=== PATIENT | female | born 2000 | race Hispanic/Latino ===

== ENCOUNTER → 2021-09-18 08:36 | Outpatient (CLI) | payer OTHER, SELFPAY ==
--- NOTE | 2021-09-18 08:39 | DI.US.S_ITS ---
PROCEDURE: US OB <= 14 WEEKS FETUS INDICATIONS: dating and viability OUTSIDE/PRIOR DATING DATA: Last menstrual period (LMP): 06/08/21. LMP-based estimated date of delivery (TRACEE): 03/15/22. First dating scan (date and location): Current study, 09/18/21. Estimated date of delivery (TRACEE) from first dating scan: 04/28/22. TECHNIQUE: Real-time scanning was performed of the fetua and maternal pelvic organs, with image documentation. Endovaginal scanning: Performed for better visualization of the fetus and maternal adnexal structures. COMPARISON: None. FINDINGS: General: An intrauterine is present including a single pole with an average crown-rump length of 1.83 cm corresponding to a eight week, two day, plus or minus five days gestation. There is detectable cardiac activity in the fetus at a rate of 171 beats per minute. A normal yolk sac and unfused amnion are present. Maternal organs: Uterus is anteverted. Maternal cervix is closed. Tiny nabothian cyst present. No perigestational hemorrhage. There is a corpus luteum in the right ovary measuring 2.2 cm. The left ovary was not seen. IMPRESSION: 1. Single living intrauterine with a gestational age of eight weeks two days plus or minus five days, and sonographically derived due date of 04/28/22. 2. Right ovarian corpus luteum. We strive to produce accurate, complete, and clear reports of imaging services. To assist us in improving patient care, this report was composed using standard report templates and voice recognition software. Therefore, it may contain abnormal punctuation, insertions and/or omissions. Occasional wrong-word or sound-alike substitutions may occur. Though we review the report and make efforts to correct it, we do recommend that the report be read carefully in proper context to recognize any text inaccuracies. Dictated by: Sintia Loya M.D. on 09/18/2021 at 11:08 Approved by: Sintia Loya M.D. on 09/18/2021 at 11:11
[2021-09-18 10:07] LABS: Add Manual Diff / Slide Review NO; Basophils Absolute Auto 0 /uL (0-100); Basophils Percent Auto 0.4 % (0-2); Eosinophils Absolute Auto 200 /uL (0-450); Eosinophils Percent Auto 2.3 % (2-4); Hematocrit 37.2 % (36-46); Hemoglobin 12.9 g/dL (12.0-16.0); Lymphocytes Absolute Auto 3000 /uL (1100-4500); Lymphocytes Percent Auto 28.4 % (25-40); Mean Corpuscular HGB Conc 34.7 % (30-36); Mean Corpuscular Hemoglobin 30.7 PG (26-34); Mean Corpuscular Volume 88.4 fL (80-100); Monocytes Absolute Auto 800 /uL (0-900); Monocytes Percent Auto 7.2 % (3-14); Neutrophils Absolute Auto 6600 /uL (1500-7000); Neutrophils Percent Auto 61.7 % (50-75); Platelet Count 228 X10^3/uL (150-400); Red Blood Cell Count 4.21 X10^6/uL (4.0-5.2); Red Cell Distribution Width 13.9 % (11.6-14.8); White Blood Cell Count 10.7 X10^3/uL (4.5-11.0)
[2021-09-19 05:53] LABS: RPR Screen Non Reactive (Non Reactive)
[2021-09-19 11:25] LABS: Varicella IgG Antibody 2291 index (Immune >165)
[2021-09-19 16:32] LABS: Hepatitis B Surface Antigen NEGATIVE s/c (NEGATIVE); Rubella Antibody IgG 5.8 IU/mL (>15)
[2021-09-19 17:04] LABS: HIV 1 & 2 Ab/Ag 4th Gen Combo NEGATIVE (NEGATIVE); Hep C Virus Ab w/Reflex Quant NEGATIVE s/c (NEGATIVE)
== END ==
PROVIDERS: Referring Provider Obstetrics & Gynecology; Visit Provider Obstetrics & Gynecology
DX: Z34.00 Encounter for supervision of normal first pregnancy, unspecified trimester (principal); E28.2 Polycystic ovarian syndrome; Z3A.08 8 weeks gestation of pregnancy; D27.0 Benign neoplasm of right ovary
CPT/HCPCS: 36415; 76801; 76817; 80055; 86787; 86803; 86850; 86900; 86901; 87389

== ENCOUNTER → 2021-10-09 08:45 | Outpatient (CLI) | payer OTHER, SELFPAY ==
[2021-10-09 12:19] LABS: Appearance Urine UA CLEAR; Bilirubin Urine UA NEGATIVE (NEGATIVE); Color Urine UA YELLOW; Glucose Urine UA NEGATIVE (Negative); Ketones Urine UA NEGATIVE (NEGATIVE); Leukocyte Esterase Urine UA NEGATIVE (NEGATIVE); Nitrite Urine UA NEGATIVE (Negative); Occult Blood Urine UA NEGATIVE (Negative); Protein Urine UA NEGATIVE (Negative); Specific Gravity Urine UA 1.025 (1.000-1.035); Urobilinogen Urine UA 0.2 E.U./dL (0.2); pH Urine UA 6.5 (4.5-8.0)
== END ==
PROVIDERS: Visit Provider Obstetrics & Gynecology
DX: E28.2 Polycystic ovarian syndrome (principal); Z34.01 Encounter for supervision of normal first pregnancy, first trimester; Z3A.11 11 weeks gestation of pregnancy
CPT/HCPCS: 81003; 87086

== ENCOUNTER → 2021-11-13 11:29 | Outpatient (CLI) | payer OTHER, SELFPAY ==
[2021-11-13 13:36] LABS: Urine N gonorrhoeae NOT DETECTED
[2021-11-13 14:39] LABS: Urine Chlamydia NOT DETECTED
== END ==
PROVIDERS: Referring Provider Obstetrics & Gynecology; Visit Provider Obstetrics & Gynecology
DX: Z34.02 Encounter for supervision of normal first pregnancy, second trimester (principal); Z11.3 Encounter for screening for infections with a predominantly sexual mode of transmission; Z3A.16 16 weeks gestation of pregnancy
CPT/HCPCS: 87491; 87591

== ENCOUNTER → 2021-12-09 14:01 | Outpatient (CLI) | payer OTHER, SELFPAY ==
--- NOTE | 2021-12-09 14:02 | DI.US.S_ITS ---
PROCEDURE: US OB >= 14 WEEKS FETUS INDICATIONS: ANATOMY OUTSIDE/PRIOR DATING DATA: Last menstrual period (LMP): 06/08/2021. LMP-based estimated date of delivery (TRACEE): 03/15/2022. First dating scan (date and location): 09/18/2021. Estimated date of delivery (TRACEE) from first dating scan: 04/28/2022. TECHNIQUE: Real-time scanning was performed of the fetus, with image documentation and biometric measurements. Endovaginal scanning: Not performed COMPARISON: [facility], OB <= 14 WEEKS FETUS, 09/18/2021, 9:33. FINDINGS: General: A single living intrauterine gestation is present. Presentation: Vertex. Placenta: Placental position is posterior , without previa. Amniotic fluid index: 11.4 cm, normal range is 5-24 cm. Single deepest vertical pocket is 4.2 cm. heart rate: 150 beats per minute. Maternal cervical canal: 3.0 cm long. Normal lower limit is 2.5 cm. biometrics: Biparietal diameter: 4.7 centimeters, 20 weeks 1 day Head circumference: 17.4 centimeters, 19 weeks 6 days Abdominal circumference: 14.7 centimeters, 20 weeks 0 days Femur length: 3.4 centimeters, 20 weeks 4 days Composite gestational age from present scan: 20 weeks 1 day Estimated weight and percentile: 340 grams, 59th percentile Anatomic survey: Neuro: Ventricles are non-dilated at less than 10 mm. Cisterna magna is normal at 3-11 mm. Cerebellum is normal in size and morphology. Nuchal skin fold: Normal at less than 6 mm between 14-21 weeks gestational age. Face: Nose and lips, facial profile are normal. Spine: No evidence for spina bifida. Heart: 4-chambered heart is present, with normal ventricular outflow tracts. Diaphragm: Diaphragm is intact. Stomach: Left-sided stomach is present. Kidneys: No hydronephrosis. Normal is less than 5 mm in 2nd trimester, less than 7 mm in 3rd trimester. Cord: 3-vessel cord has orthotopic insertion. Bladder: Normal in size. Extremities: All 4 extremities identified. IMPRESSION: 1. Single living intrauterine . 2. Normal 2nd trimester anatomy survey. No anomalies detected at this time. We strive to produce accurate, complete, and clear reports of imaging services. To assist us in improving patient care, this report was composed using standard report templates and voice recognition software. Therefore, it may contain abnormal punctuation, insertions and/or omissions. Occasional wrong-word or sound-alike substitutions may occur. Though we review the report and make efforts to correct it, we do recommend that the report be read carefully in proper context to recognize any text inaccuracies. Dictated by: Damon Oliva M.D. on 12/11/2021 at 19:53 Approved by: Damon Oliva M.D. on 12/11/2021 at 19:59
== END ==
PROVIDERS: Referring Provider Obstetrics & Gynecology; Visit Provider Obstetrics & Gynecology
DX: Z34.02 Encounter for supervision of normal first pregnancy, second trimester (principal); Z3A.20 20 weeks gestation of pregnancy
CPT/HCPCS: 76811

== ENCOUNTER → 2021-12-11 11:11 | Outpatient (CLI) | payer OTHER, SELFPAY ==
[2021-12-13 20:46] LABS: AFP, Serum 55.3 ng/mL (.); Estriol, Free 2.15 ng/mL (.); Inhibin A, Dimeric 149.57 pg/mL (.); Inhibin A, MoM 0.93 (.); Maternal Ethnicity Other (.); Maternal Weight 215 lbs (.); Number of Fetuses No (.); OSBR Risk 1 IN 9862 (.); Results Report (.); Test Results *Screen Negative* (.); hCG, MoM 0.81 (.); hCG, Serum 16660 mIU/mL (.)
== END ==
PROVIDERS: Referring Provider Obstetrics & Gynecology; Visit Provider Obstetrics & Gynecology
DX: Z34.02 Encounter for supervision of normal first pregnancy, second trimester (principal); Z3A.20 20 weeks gestation of pregnancy
CPT/HCPCS: 36415; 82105; 82677; 84702; 86336

== ENCOUNTER → 2022-02-10 10:02 | Outpatient (CLI) | payer OTHER, SELFPAY ==
[2022-02-10 11:51] LABS: Hematocrit 36.1 % (36-46); Hemoglobin 12.4 g/dL (12.0-16.0)
[2022-02-12 19:08] LABS: GTT (PREG) 1 Hour PP 50gm Dose 122 mg/dL (76-139)
== END ==
PROVIDERS: Referring Provider Obstetrics & Gynecology; Visit Provider Obstetrics & Gynecology
DX: Z34.02 Encounter for supervision of normal first pregnancy, second trimester (principal); Z3A.26 26 weeks gestation of pregnancy
CPT/HCPCS: 36415; 82950; 85014; 85018

== ENCOUNTER → 2022-03-26 13:35 | Outpatient (CLI) | payer OTHER, SELFPAY ==
[2022-03-26 15:16] LABS: Add Manual Diff / Slide Review NO; Basophils Absolute Auto 0 /uL (0-100); Basophils Percent Auto 0.3 % (0-2); Eosinophils Absolute Auto 0 /uL (0-450); Eosinophils Percent Auto 0.4 % (2-4); Hematocrit 33.6 % (36-46); Hemoglobin 11.2 g/dL (12.0-16.0); Lymphocytes Absolute Auto 2100 /uL (1100-4500); Lymphocytes Percent Auto 19.4 % (25-40); Mean Corpuscular HGB Conc 33.3 % (30-36); Mean Corpuscular Hemoglobin 29.5 PG (26-34); Mean Corpuscular Volume 88.5 fL (80-100); Monocytes Absolute Auto 900 /uL (0-900); Neutrophils Absolute Auto 7800 /uL (1500-7000); Neutrophils Percent Auto 71.9 % (50-75); Platelet Count 242 X10^3/uL (150-400); Red Cell Distribution Width 14.2 % (11.6-14.8); White Blood Cell Count 10.8 X10^3/uL (4.5-11.0)
[2022-03-26 15:17] LABS: Alanine Aminotransferase 18 IU/L (<35); Albumin 3.4 g/dL (3.5-5.0); Albumin Globulin Ratio 1.1 (1.0-2.8); Alkaline Phosphatase 90 U/L (38-126); Aspartate Aminotransferase 22 IU/L (14-36); Bilirubin Total 0.2 mg/dL (0.2-1.3); Globulin 3.2 g/dL (1.7-4.1); HEMOLYSIS < 15 (0-50); Total Protein 6.6 g/dL (6.3-8.2); Uric Acid 5.4 mg/dL (2.5-6.2)
[2022-03-26 16:24] LABS: Creatinine Urine Random 208.4 mg/dL; Protein (Total) Urine Random 149 mg/dL (0-12); Protein Creatinine Ratio Urine 0.71 GRAM/24H
[2022-03-27 15:37] LABS: Strep Grp B PCR NEG for Grp B Strep
== END ==
PROVIDERS: Referring Provider Obstetrics & Gynecology; Visit Provider Obstetrics & Gynecology
DX: Z3A.35 35 weeks gestation of pregnancy; O13.3 Gestational [pregnancy-induced] hypertension without significant proteinuria, third trimester
CPT/HCPCS: 36415; 80076; 82570; 84156; 84550; 85025; 87653

== ENCOUNTER 2022-03-26 14:15 | Observation (INO) | payer OTHER, MEDICAID, SELFPAY ==
--- NOTE | 2022-03-26 17:29 | PM.OBTRLD ---
Visit Information Visit Information Date of evaluation: 03/26/22 Primary OB Provider: Brendan Gandhi On-call OB Provider: Brendan Gandhi Reason for Evaluation: Yes non-stress test and Yes other Comments/Additional reasons for admission: Avani is a 21-year-old at 35+ 4 weeks gestational age admitted to the [facility] for observation due to elevated blood pressures in the office during a routine OB visit earlier today and 2+ proteinuria noted. She denies headache, visual changes or right upper quadrant pain. She has been experiencing increasing edema over the last few weeks, particularly facial edema. Vital Signs Vital Signs: BP MAX: 137/95 (MAP 111) BP MIN: 134/84 (MAP 106) P: 66-73 T: 36.7C PFSH Medical History (Updated 03/26/22 @ 18:33 by Brendan Gandhi MD) Acne Chlamydia Migraine Ovarian cyst PCOS (polycystic ovarian syndrome) Surgical History (Updated 11/12/21 @ 21:42 by Millicent Collins) Anesthesia [place] teeth extracted (~02/2019) Family History (Updated 11/12/21 @ 21:43 by Millicent Collins) Grandmother Seizure Grandfather Lung cancer Social History marital status: unmarried,living together number of children: 0 household members: significant other lives independently: Yes housing: apartment pets and animals: Yes (1 dog) education level: college (some college) occupational status: employed 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) special 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 needs: No travel history: over 6 months ago seatbelt use: always water heater temp set < 120 deg: No (will check) working smoke detector in home: Yes fire extinguisher in home: Yes carbon monox detector in home: Yes firearms in home: No do you feel safe at home: Yes Smoking Status: Former smoker (used to vape) second hand exposure: No alcohol intake: former substance use type: does not use during the past year weight has: increased > 10 lbs well-balanced diet: daily or most days daily servings fruits/ve-4 caffeine: No Type(s) of exercise: aerobic, regular exercise and weight lifting frequency: 3-4 times per week Review of Systems Review of Systems Narrative: Problem-specific ROS positives included with the HPI Exam Const General: cooperative and comfortable HENMT Head: normal to inspection, normocephalic and atraumatic Eyes General: appearance normal, both eyes and all related structures Resp Effort & Inspection: normal respiratory effort and able to speak in complete sentences Auscultation: clear to auscultation bilaterally Cardio Rate: regular rate Rhythm: regular rhythm Heart Sounds: S1 normal, S2 normal and no murmurs GI Inspection: normal to inspection Palpation: soft and no hepatosplenomegaly Extrem Right lower extremity: normal to inspection Evaluation Evaluation Baseline heart rate: 120 Variability: Moderate (11-25) monitor accelerations: Present Monitor Decelerations: Absent Category of Tracing: Reactive Status: Category l Diagnosis, Plan/Disposition Final Diagnosis (1) Pre-eclampsia affecting , antepartum: Status: Acute (2) : Status: Acute Plan/Disposition Plan: Case reviewed with [facility] MFM (Dr. Doss) who recommends initiation of labetalol 200 mg p.o. b.i.d. and close observation for development of severe features in hopes of getting the patient 37 weeks gestational age for induction at that time. Patient will receive her 1st dose of labetalol before leaving this evening and an electronic prescription for labetalol 200 mg p.o. b.i.d. is sent to her pharmacy ([facility]). Patient was instructed at length regarding signs and symptoms of severe blood pressure elevation and she will endeavor to check her blood pressure at least twice daily and notify us of any blood pressures approaching the severe range (160/110). Patient will return in 48 hours for repeat labs/NST and additional testing as indicated. If no indication of severe features at the next evaluation in 48 hours, she will return every 48 hours for NST and labs until 37 weeks if delivery prior to 37 weeks isn't indicated by her clinical course. Patient was also placed on bedrest and a note was provided for her employer to that effect. OB Disposition: home
[2022-03-26] MEDS: LABETALOL 100 MG TABLET 200 MG PO (18:35)
== END 2022-03-26 18:39 | disposition home or self-care (01) ==
PROVIDERS: Admitting Provider Obstetrics & Gynecology; Referring Provider Obstetrics & Gynecology; Visit Provider Obstetrics & Gynecology
DX: O14.93 Unspecified pre-eclampsia, third trimester (principal); Z3A.35 35 weeks gestation of pregnancy
CPT/HCPCS: 36415; 59025; 59050; 80076; 82570; 84156; 84550; 85025; 87653; G0378; G0379

== ENCOUNTER 2022-03-28 11:13 | Outpatient (CLI) | payer OTHER, MEDICAID, SELFPAY | END 2022-03-28 11:45 | disposition home or self-care (01) | LOC: LABOR 11:17 → OB 03-29 15:25 | PROVIDERS: Referring Provider Obstetrics & Gynecology; Visit Provider Obstetrics & Gynecology | DX: O13.3 Gestational [pregnancy-induced] hypertension without significant proteinuria, third trimester (principal); Z3A.35 35 weeks gestation of pregnancy | CPT/HCPCS: 36415; 59025; 80076; 82570; 84156; 84550; 85025; G0378; G0379 ==

== ENCOUNTER → 2022-03-28 11:55 | Outpatient (CLI) | payer OTHER, MEDICAID, SELFPAY ==
[2022-03-28 13:27] LABS: Alanine Aminotransferase 17 IU/L (<35); Albumin 3.4 g/dL (3.5-5.0); Albumin Globulin Ratio 1.1 (1.0-2.8); Alkaline Phosphatase 99 U/L (38-126); Aspartate Aminotransferase 22 IU/L (14-36); Bilirubin Total 0.3 mg/dL (0.2-1.3); Bilirubin Unconjugated 0.2 mg/dL (0.0-1.1); Globulin 3.1 g/dL (1.7-4.1); HEMOLYSIS < 15 (0-50); Total Protein 6.5 g/dL (6.3-8.2); Uric Acid 5.9 mg/dL (2.5-6.2)
[2022-03-28 13:46] LABS: Add Manual Diff / Slide Review NO; Basophils Absolute Auto 0 /uL (0-100); Basophils Percent Auto 0.3 % (0-2); Eosinophils Absolute Auto 100 /uL (0-450); Eosinophils Percent Auto 0.6 % (2-4); Hematocrit 32.3 % (36-46); Hemoglobin 10.9 g/dL (12.0-16.0); Lymphocytes Absolute Auto 2100 /uL (1100-4500); Lymphocytes Percent Auto 20.4 % (25-40); Mean Corpuscular HGB Conc 33.8 % (30-36); Mean Corpuscular Hemoglobin 29.7 PG (26-34); Monocytes Absolute Auto 900 /uL (0-900); Monocytes Percent Auto 8.7 % (3-14); Neutrophils Absolute Auto 7100 /uL (1500-7000); Platelet Count 243 X10^3/uL (150-400); Red Blood Cell Count 3.68 X10^6/uL (4.0-5.2); Red Cell Distribution Width 14.4 % (11.6-14.8); White Blood Cell Count 10.2 X10^3/uL (4.5-11.0)
[2022-03-28 15:56] LABS: Protein (Total) Urine Random 127 mg/dL (0-12); Protein Creatinine Ratio Urine 1.07 GRAM/24H
== END ==
PROVIDERS: Referring Provider Obstetrics & Gynecology; Visit Provider Obstetrics & Gynecology
DX: O14.90 Unspecified pre-eclampsia, unspecified trimester (principal)
CPT/HCPCS: 36415; 80076; 82570; 84156; 84550; 85025

== ENCOUNTER 2022-03-30 10:13 | Outpatient (CLI) | payer OTHER, MEDICAID, SELFPAY | END 2022-03-30 10:55 | disposition home or self-care (01) | LOC: OB 04-03 17:03 | PROVIDERS: Referring Provider Obstetrics & Gynecology; Visit Provider Obstetrics & Gynecology | DX: O13.3 Gestational [pregnancy-induced] hypertension without significant proteinuria, third trimester (principal); Z3A.35 35 weeks gestation of pregnancy | CPT/HCPCS: 59025; G0378; G0379 ==

== ENCOUNTER 2022-04-01 11:10 | Observation (INO) | payer OTHER, MEDICAID, SELFPAY ==
[2022-04-01 12:39] LABS: Add Manual Diff / Slide Review NO; Basophils Absolute Auto 100 /uL (0-100); Basophils Percent Auto 0.6 % (0-2); Eosinophils Absolute Auto 100 /uL (0-450); Eosinophils Percent Auto 1.1 % (2-4); Hematocrit 30.3 % (36-46); Hemoglobin 10.3 g/dL (12.0-16.0); Lymphocytes Absolute Auto 2100 /uL (1100-4500); Lymphocytes Percent Auto 20.5 % (25-40); Mean Corpuscular HGB Conc 33.9 % (30-36); Mean Corpuscular Hemoglobin 30.1 PG (26-34); Mean Corpuscular Volume 88.8 fL (80-100); Monocytes Absolute Auto 900 /uL (0-900); Monocytes Percent Auto 8.8 % (3-14); Neutrophils Absolute Auto 7100 /uL (1500-7000); Platelet Count 224 X10^3/uL (150-400); Red Blood Cell Count 3.42 X10^6/uL (4.0-5.2); Red Cell Distribution Width 14.6 % (11.6-14.8); White Blood Cell Count 10.2 X10^3/uL (4.5-11.0)
[2022-04-01 12:46] LABS: Uric Acid 6.6 mg/dL (2.5-6.2)
[2022-04-01 12:48] LABS: Alanine Aminotransferase 17 IU/L (<35); Albumin 3.1 g/dL (3.5-5.0); Alkaline Phosphatase 94 U/L (38-126); Aspartate Aminotransferase 22 IU/L (14-36); Bilirubin Total 0.2 mg/dL (0.2-1.3); Blood Urea Nitrogen 12 mg/dL (7-17); Calcium 8.6 mg/dL (8.4-10.2); Carbon Dioxide 20 mmol/L (22-32); Chloride 107 mmol/L (98-107); Estimated Glomerular Filt Rate > 60 mL/min (>60); Glucose 73 mg/dL (70-100); HEMOLYSIS < 15 (0-50); Potassium 4.2 mmol/L (3.4-5.1); Sodium 133 mmol/L (137-145); Total Protein 6.1 g/dL (6.3-8.2)
--- NOTE | 2022-04-01 13:16 | PM.OBTRLD ---
Visit Information Visit Information Date of evaluation: 04/01/22 Primary OB Provider: Brendan Gandhi Reason for Evaluation: Yes non-stress test Comments/Additional reasons for admission: 22 yo G1 at 36+1 wks EGA w/ PEC w/o severe features for NST and labs Vital Signs Vital Signs: BP MAX: 144/93 (MAP 115) BP Range: 133/73 (MAP 99) - 119/67 (MAP 88) P: 65 T: 36.9 PFSH Medical History (Updated 03/26/22 @ 18:33 by Brendan Gandhi MD) Acne Chlamydia Migraine Ovarian cyst PCOS (polycystic ovarian syndrome) Surgical History (Updated 11/12/21 @ 21:42 by Millicent Collins) Anesthesia [place] teeth extracted (~02/2019) Family History (Updated 11/12/21 @ 21:43 by Millicent Collins) Grandmother Seizure Grandfather Lung cancer Social History marital status: unmarried,living together number of children: 0 household members: significant other lives independently: Yes housing: apartment pets and animals: Yes (1 dog) education level: college (some college) occupational status: employed 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 travel history: over 6 months ago seatbelt use: always water heater temp set < 120 deg: No (will check) working smoke detector in home: Yes fire extinguisher in home: Yes carbon monox detector in home: Yes firearms in home: No do you feel safe at home: Yes Smoking Status: Former smoker (used to vape) second hand exposure: No alcohol intake: former substance use type: does not use during the past year weight has: increased > 10 lbs well-balanced diet: daily or most days daily servings fruits/ve-4 caffeine: No Type(s) of exercise: aerobic, regular exercise and weight lifting frequency: 3-4 times per week Review of Systems Review of Systems Narrative: Problem-specific ROS positives included in HPI Exam HENMT Head: normal to inspection, normocephalic and atraumatic Eyes General: appearance normal, both eyes and all related structures Resp Effort & Inspection: normal respiratory effort and able to speak in complete sentences Auscultation: clear to auscultation bilaterally Cardio Rate: regular rate Rhythm: regular rhythm Heart Sounds: S1 normal, S2 normal and no murmurs GI Inspection: normal to inspection Palpation: soft and no hepatosplenomegaly Uterus Location (Fundal Height): 36 Presentation: vertex Estimated Weight (lbs): 7 Neuro DTR's: Rt Patellar: 2+ and Lt Patellar: 2+ Extrem Right lower extremity: normal to inspection; no edema Left lower extremity: no edema Objective Labs Result Diagrams: 04/01/22 12:25 04/01/22 12:25 Labs: Laboratory Results - last 24 hr 04/01/22 04/01/22 04/01/22 12:25 12:25 12:25 WBC 10.2 RBC 3.42 L Hgb 10.3 L Hct 30.3 L MCV 88.8 MCH 30.1 MCHC 33.9 RDW 14.6 Plt Count 224 Neut % (Auto) 69.0 Lymph % (Auto) 20.5 L [place] % (Auto) 8.8 Eos % (Auto) 1.1 L Baso % (Auto) 0.6 Neut # (Auto) 7100 H Lymph # (Auto) 2100 [place] # (Auto) 900 Eos # (Auto) 100 Baso # (Auto) 100 Sodium 133 L Potassium 4.2 Chloride 107 Carbon Dioxide 20 L BUN 12 Creatinine 0.75 Estimated GFR > 60 BUN/Creatinine Ratio 16.0 Glucose 73 Uric Acid 6.6 H Calcium 8.6 Total Bilirubin 0.2 AST 22 ALT 17 Alkaline Phosphatase 94 Total Protein 6.1 L Albumin 3.1 L Globulin 3.0 Albumin/Globulin Ratio 1.0 Diagnosis, Plan/Disposition Final Diagnosis (1) Pre-eclampsia affecting , antepartum: Status: Acute Plan/Disposition Plan: Patient does not yet meet criteria for preeclampsia with severe features but her rising uric acid levels and protein to creatinine ratio levels are concerning. Patient again counseled regarding signs and symptoms of severe blood pressure elevation and encouraged to remain at bedrest as much as possible and closely observe her blood pressures during that time. Patient will return for NST and labs in 48 hours and has been scheduled for cervical ripening starting on the evening of 04/07/2021 for induction on the morning of 04/08/2021 if delivery is not indicated sooner. OB Disposition: home
== END 2022-04-01 13:35 | disposition home or self-care (01) ==
PROVIDERS: Admitting Provider Obstetrics & Gynecology; Referring Provider Obstetrics & Gynecology; Visit Provider Obstetrics & Gynecology
DX: O14.93 Unspecified pre-eclampsia, third trimester (principal); Z3A.36 36 weeks gestation of pregnancy
CPT/HCPCS: 59025; 80053; 84550; 85025; G0378; G0379

== ENCOUNTER 2022-04-03 11:08 | Observation (INO) | payer OTHER, MEDICAID, SELFPAY ==
[2022-04-03 12:17] LABS: Add Manual Diff / Slide Review NO; Basophils Absolute Auto 0 /uL (0-100); Basophils Percent Auto 0.4 % (0-2); Eosinophils Absolute Auto 100 /uL (0-450); Eosinophils Percent Auto 0.9 % (2-4); Hemoglobin 11.3 g/dL (12.0-16.0); Lymphocytes Absolute Auto 2100 /uL (1100-4500); Lymphocytes Percent Auto 21.5 % (25-40); Mean Corpuscular HGB Conc 34.3 % (30-36); Mean Corpuscular Hemoglobin 30.2 PG (26-34); Monocytes Absolute Auto 1000 /uL (0-900); Monocytes Percent Auto 10.3 % (3-14); Neutrophils Absolute Auto 6600 /uL (1500-7000); Neutrophils Percent Auto 66.9 % (50-75); Platelet Count 228 X10^3/uL (150-400); Red Blood Cell Count 3.75 X10^6/uL (4.0-5.2); Red Cell Distribution Width 14.3 % (11.6-14.8); White Blood Cell Count 9.9 X10^3/uL (4.5-11.0)
[2022-04-03 12:53] LABS: Alanine Aminotransferase 20 IU/L (<35); Albumin 3.2 g/dL (3.5-5.0); Albumin Globulin Ratio 1.1 (1.0-2.8); Alkaline Phosphatase 101 U/L (38-126); Aspartate Aminotransferase 30 IU/L (14-36); BUN Creatinine Ratio 16.3 (6-22); Bilirubin Total 0.3 mg/dL (0.2-1.3); Blood Urea Nitrogen 14 mg/dL (7-17); Calcium 8.7 mg/dL (8.4-10.2); Carbon Dioxide 22 mmol/L (22-32); Chloride 107 mmol/L (98-107); Estimated Glomerular Filt Rate > 60 mL/min (>60); Glucose 74 mg/dL (70-100); HEMOLYSIS < 15 (0-50); Potassium 4.4 mmol/L (3.4-5.1); Sodium 134 mmol/L (137-145); Total Protein 6.2 g/dL (6.3-8.2); Uric Acid 7.6 mg/dL (2.5-6.2)
--- NOTE | 2022-04-03 13:12 | P.TNLD_ITS ---
Visit Information Visit Information Date of evaluation: 04/03/22 Primary OB Provider: Brendan Gandhi Reason for Evaluation: Yes non-stress test Comments/Additional reasons for admission: Avani returns today for NST and labs due to PEC w/o severe features. ROS negative for H/A, visual changes, RUQ pain and baby remains active Vital Signs Vital Signs: BP MAX: 149/99 (MAP 119) [facility] Medical History (Updated 03/26/22 @ 18:33 by Brendan Gandhi MD) Acne Chlamydia Migraine Ovarian cyst PCOS (polycystic ovarian syndrome) Surgical History (Updated 11/12/21 @ 21:42 by Millicent Collins) Anesthesia [place] teeth extracted (~02/2019) Family History (Updated 11/12/21 @ 21:43 by Millicent Collins) Grandmother Seizure Grandfather Lung cancer Social History marital status: unmarried,living together number of children: 0 household members: significant other lives independently: Yes housing: apartment pets and animals: Yes (1 dog) education level: college (some college) occupational status: employed 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) special 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 needs: No travel history: over 6 months ago seatbelt use: always water heater temp set < 120 deg: No (will check) working smoke detector in home: Yes fire extinguisher in home: Yes carbon monox detector in home: Yes firearms in home: No do you feel safe at home: Yes Smoking Status: Former smoker (used to vape) second hand exposure: No alcohol intake: former substance use type: does not use during the past year weight has: increased > 10 lbs well-balanced diet: daily or most days daily servings fruits/ve-4 caffeine: No Type(s) of exercise: aerobic, regular exercise and weight lifting frequency: 3-4 times per week Review of Systems Review of Systems Narrative: Problem-specific ROS positives included in HPI Exam Const General: cooperative and comfortable Nutritional Appearance: average body habitus HENMT Head: normal to inspection, normocephalic and atraumatic Eyes General: appearance normal, both eyes and all related structures Resp Effort & Inspection: normal respiratory effort and able to speak in complete sentences Auscultation: clear to auscultation bilaterally GI Inspection: normal to inspection Palpation: soft and no hepatosplenomegaly Uterus Location (Fundal Height): 37 Presentation: vertex Estimated Weight (lbs): 7 Neuro DTR's: Rt Patellar: 2+ and Lt Patellar: 2+ Extrem Right lower extremity: normal to inspection and edema (Trace) Left lower extremity: edema (Trace) Objective Labs Result Diagrams: 04/03/22 11:50 04/03/22 11:50 Labs: Laboratory Results - last 24 hr 04/03/22 04/03/22 04/03/22 11:50 11:50 11:50 WBC 9.9 RBC 3.75 L Hgb 11.3 L Hct 33.0 L MCV 88.0 MCH 30.2 MCHC 34.3 RDW 14.3 Plt Count 228 Neut % (Auto) 66.9 Lymph % (Auto) 21.5 L [place] % (Auto) 10.3 Eos % (Auto) 0.9 L Baso % (Auto) 0.4 Neut # (Auto) 6600 Lymph # (Auto) 2100 [place] # (Auto) 1000 H Eos # (Auto) 100 Baso # (Auto) 0 Sodium 134 L Potassium 4.4 Chloride 107 Carbon Dioxide 22 BUN 14 Creatinine 0.86 Estimated GFR > 60 BUN/Creatinine Ratio 16.3 Glucose 74 Uric Acid 7.6 H Calcium 8.7 Total Bilirubin 0.3 AST 30 ALT 20 Alkaline Phosphatase 101 Total Protein 6.2 L Albumin 3.2 L Globulin 3.0 Albumin/Globulin Ratio 1.1 U Random Total Protein Cancelled Urine Creatinine Cancelled Protein/Creatinin Ratio Cancelled Evaluation Evaluation Baseline heart rate: 125 Variability: Average (6-10) monitor accelerations: Present Monitor Decelerations: Absent Category of Tracing: Reactive Diagnosis, Plan/Disposition Final Diagnosis (1) Pre-eclampsia affecting , antepartum: Status: Acute (2) : Status: Acute Plan/Disposition Plan: Continue expectant management of PEC w/o severe features as recommended by [facility] with plans for ripening/induction starting on the evening of 04/07/2022. Repeat NST/labs 04/05/22 Increase labetalol to 400 mg PO BID Close monitoring of BP and continued BR at home. Precautionary symptoms reviewed again. OB Disposition: home
[2022-04-03 14:07] LABS: Creatinine Urine Random 385.8 mg/dL; Protein (Total) Urine Random 6087 mg/dL (0-12); Protein Creatinine Ratio Urine 15.77 GRAM/24H
== END 2022-04-03 13:10 | disposition home or self-care (01) ==
PROVIDERS: Admitting Provider Obstetrics & Gynecology; Referring Provider Obstetrics & Gynecology; Visit Provider Obstetrics & Gynecology
DX: O14.93 Unspecified pre-eclampsia, third trimester (principal); Z3A.36 36 weeks gestation of pregnancy
CPT/HCPCS: 36415; 59025; 59050; 80053; 82570; 84156; 84550; 85025; G0378; G0379

== ENCOUNTER 2022-04-04 18:18 | Inpatient (IN) | payer OTHER, MEDICAID, SELFPAY ==
[2022-04-04 18:55] VITALS: BP 161/97; PULSE 63
[2022-04-04] MEDS: LABETALOL 100 MG TABLET 400 MG PO (18:55)
[2022-04-04 19:13] LABS: Add Manual Diff / Slide Review NO; Basophils Absolute Auto 100 /uL (0-100); Basophils Percent Auto 0.7 % (0-2); Eosinophils Absolute Auto 100 /uL (0-450); Eosinophils Percent Auto 1.2 % (2-4); Hematocrit 31.8 % (36-46); Hemoglobin 10.9 g/dL (12.0-16.0); Lymphocytes Absolute Auto 2300 /uL (1100-4500); Lymphocytes Percent Auto 24.2 % (25-40); Mean Corpuscular HGB Conc 34.2 % (30-36); Mean Corpuscular Hemoglobin 30.1 PG (26-34); Monocytes Absolute Auto 1000 /uL (0-900); Monocytes Percent Auto 10.1 % (3-14); Neutrophils Absolute Auto 6100 /uL (1500-7000); Neutrophils Percent Auto 63.8 % (50-75); Platelet Count 224 X10^3/uL (150-400); Red Blood Cell Count 3.62 X10^6/uL (4.0-5.2); Red Cell Distribution Width 14.7 % (11.6-14.8); White Blood Cell Count 9.6 X10^3/uL (4.5-11.0)
[2022-04-04 19:28] LABS: Alanine Aminotransferase 20 IU/L (<35); Albumin 2.9 g/dL (3.5-5.0); Alkaline Phosphatase 95 U/L (38-126); Aspartate Aminotransferase 27 IU/L (14-36); BUN Creatinine Ratio 16.9 (6-22); Bilirubin Total 0.3 mg/dL (0.2-1.3); Blood Urea Nitrogen 15 mg/dL (7-17); Calcium 8.8 mg/dL (8.4-10.2); Carbon Dioxide 20 mmol/L (22-32); Chloride 108 mmol/L (98-107); Estimated Glomerular Filt Rate > 60 mL/min (>60); Globulin 2.9 g/dL (1.7-4.1); Glucose 78 mg/dL (70-100); HEMOLYSIS 21 (0-50); Potassium 4.3 mmol/L (3.4-5.1); Sodium 133 mmol/L (137-145); Total Protein 5.8 g/dL (6.3-8.2)
--- NOTE | 2022-04-04 20:59 | P.HPOB_ITS ---
OB HPI Date/Time Date of admission: 04/04/22 Date Patient Seen: 04/04/22 Time Patient Seen: 21:00 History of Present Condition Chief complaint: pre-eclampsia TRACEE Calculator Estimated Delivery Date Method Current WG Current Estimate 04/28/22 Ultrasound #2 36w 4d Other Estimates 03/15/22 LMP (Certain) 42w 6d 04/29/22 Ultrasound #1 36w 3d Estimated Gestational Age (weeks): 36w4d : 1 Para: 0 care: good care Dating criteria OB: based on 1st trimester US only Ultrasounds: normal mid trimester US Obstetrical complications: preeclampsia Medical complications OB: cardiovascular (mild anemia of ) and other (rubella non-immune) External History Prior Pregnancies: 0 Indications Indication for induction OB: gestational HTN/pre-eclampsia Preadmission Labs Last OB Lab Results: Blood Type O Positive 09/18/21 09:50 Antibody Screen Negative 09/18/21 09:50 Hematocrit 31.8 % (36-46) L 04/04/22 19:07 Hemoglobin 10.9 g/dL (12.0-16.0) L 04/04/22 19:07 Hepatitis B Surface Antigen Negative s/c (NEGATIVE) 09/18/21 09 :50 Hepatitis C Antibody Negative s/c (NEGATIVE) 09/18/21 09:50 Rubella Antibody 5.8 IU/mL (>15) L 09/18/21 09:50 Varicella-Zoster IgG Antibody 2291 index (Immune >165) 09/18/21 09:50 Glucose 1 Hour 122 mg/dL (76-139) 02/10/22 10:11 Group B Streptococcus (PCR) Neg for grp b strep 03/26/22 13:41 Evaluation Evaluation Baseline heart rate: 120 Variability: Moderate (11-25) monitor accelerations: Present Monitor Decelerations: Absent Status: Category l Comments: Per patient, SVE in clinic with Dr. Lynn earlier this week. Not performed on admission. 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 travel history: over 6 months ago seatbelt use: always water heater temp set < 120 deg: No (will check) working smoke detector in home: Yes fire extinguisher in home: Yes carbon monox detector in home: Yes firearms in home: No do you feel safe at home: Yes Smoking Status: Former smoker (used to vape) second hand exposure: No alcohol intake: former substance use type: does not use during the past year weight has: increased > 10 lbs well-balanced diet: daily or most days daily servings fruits/ve-4 caffeine: No Type(s) of exercise: aerobic, regular exercise and weight lifting frequency: 3-4 times per week Meds Home Medications and Allergies Home Medications Medication Instructions Recorded Confirmed Type prenat.vits,zara,tkn-nzes-qiagy 1 tab PO DAILY 09/12/21 04/02/22 History omeprazole 40 mg capsule,delayed 40 mg PO DAILY #30 caps 03/26/22 04/02/22 Rx release labetalol 200 mg tablet 400 mg PO BID #30 tabs 04/03/22 Rx Allergies Allergy/AdvReac Type Severity Reaction Status Date / Time No Known Allergies Allergy Verified 04/02/22 15:57 Review of Systems Review of Systems Narrative: Complete ROS reviewed; all negative. OB Exam Vital signs Blood Pressure: 140/82 Pulse Rate: 59 Respiratory Rate: 18 HENMT Head: normocephalic Mouth: oral mucosae normal Resp Effort & Inspection: normal respiratory effort and able to speak in complete sentences Cardio Rate: regular rate Rhythm: regular rhythm Heart Sounds: S1 normal and S2 normal Other: no clonus bilaterally Extremities Lower extremity: Yes edema (non-pitting) Laterality: bilateral DTR's: Rt Patellar: 2+ and Lt Patellar: 2+ GI Inspection: other Other: Gravid Estimated Weight (lbs): 6 Objective Labs Result Diagrams: 04/04/22 19:07 04/04/22 19:07 Labs: Laboratory Results - last 24 hr 04/04/22 04/04/22 19:07 19:07 WBC 9.6 RBC 3.62 L Hgb 10.9 L Hct 31.8 L MCV 88.0 MCH 30.1 MCHC 34.2 RDW 14.7 Plt Count 224 Neut % (Auto) 63.8 Lymph % (Auto) 24.2 L [place] % (Auto) 10.1 Eos % (Auto) 1.2 L Baso % (Auto) 0.7 Neut # (Auto) 6100 Lymph # (Auto) 2300 [place] # (Auto) 1000 H Eos # (Auto) 100 Baso # (Auto) 100 Sodium 133 L Potassium 4.3 Chloride 108 H Carbon Dioxide 20 L BUN 15 Creatinine 0.89 Estimated GFR > 60 BUN/Creatinine Ratio 16.9 Glucose 78 Calcium 8.8 Total Bilirubin 0.3 AST 27 ALT 20 Alkaline Phosphatase 95 Total Protein 5.8 L Albumin 2.9 L Globulin 2.9 Albumin/Globulin Ratio 1.0 Assessment and Plan Assessment and Plan Assessment and Plan narrative: Assessment: 22 year old at 36w4d Pre-eclampsia without severe features GBS neg Rh pos Rubella non-immune Mild anemia of FHR Cat 1 Plan: Consulted with Dr. Lynn by phone who recommends admission to L&D for cervical ripening. Reviewed risks of going home with labile blood pressures. After initially desiring to go home and return for evaluation over the weekend, Avani consents to stay for IOL. Initiate induction of labor r/to pre-eclampsia. Reviewed plan of care for induction: cervadil, pitocin, ROM. Reviewed change in labetalol dosing to 300 mg TID. Will add nifedipine 30 mg XL PRN. Admit to L&D. Continuous monitoring Anticipate NSVB Time Spent with Patient Total time spent with greater than 50% in coordination of care (as documented) at patient's floor/unit and/or counseling patient:: Greater than 35 minutes
[2022-04-04] MEDS: DINOPROSTONE VAG (CERVIDIL) 10 MG VAG (22:12)
[2022-04-04] MEDS: hydrOXYzine pamoate 25 MG CAPSULE 50 MG PO (22:12)
[2022-04-04 22:30] LABS: COVID19 -Nasal RAPID Negative (Negative)
[2022-04-04 22:57] VITALS: BP 140/82; PULSE 59; RESP 18
[2022-04-04] MEDS: NIFEdipine 30 MG TAB ER PO (23:05)
[2022-04-04 23:40] VITALS: BP 156/96
[2022-04-05 04:29] VITALS: BP 118/68; PULSE 63
[2022-04-05] MEDS: LABETALOL 100 MG TABLET 300 MG PO ×4 (04:29→21:28)
[2022-04-05 08:46] VITALS: BP 146/96; PULSE 71
--- NOTE | 2022-04-05 09:02 | PM.OBPNLAB ---
Date/Time Date Patient Seen: 04/05/22 Time Patient Seen: 08:45 Pelvic Exam Dilation (cm): 0 Effacement (%): 50 station: -3 Amniotic membrane status: Intact Comments: soft, mid position Contractions Date/Time contractions began: mild contractions since 0600 Contractions on admission: none Status status: Category l Heart Rate Baseline: 100 Monitor Accelerations: Present Monitor Decelerations: Absent Monitor Variability: Moderate Assessment and Plan Assessment: induction ongoing Plan: continuous present management Comments: Cervidil to be removed at 12 hours or sooner PRN if contractions slow. Then transition to misoprostol 50 mcg buccal q 4 hours. Recheck cervix PRN.
[2022-04-05] MEDS: miSOPROStoL 100 MCG TABLET 50 MCG SL ×2 (11:27→15:37)
[2022-04-05 14:16] LABS: Add Manual Diff / Slide Review NO; Basophils Absolute Auto 100 /uL (0-100); Basophils Percent Auto 0.8 % (0-2); Eosinophils Absolute Auto 100 /uL (0-450); Eosinophils Percent Auto 0.9 % (2-4); Hematocrit 32.2 % (36-46); Hemoglobin 11.2 g/dL (12.0-16.0); Lymphocytes Absolute Auto 1700 /uL (1100-4500); Lymphocytes Percent Auto 16.8 % (25-40); Mean Corpuscular HGB Conc 34.9 % (30-36); Mean Corpuscular Hemoglobin 30.3 PG (26-34); Mean Corpuscular Volume 86.9 fL (80-100); Monocytes Absolute Auto 900 /uL (0-900); Monocytes Percent Auto 8.7 % (3-14); Neutrophils Absolute Auto 7400 /uL (1500-7000); Neutrophils Percent Auto 72.8 % (50-75); Platelet Count 219 X10^3/uL (150-400); Red Blood Cell Count 3.71 X10^6/uL (4.0-5.2); Red Cell Distribution Width 14.5 % (11.6-14.8); White Blood Cell Count 10.1 X10^3/uL (4.5-11.0)
[2022-04-05 15:33] VITALS: BP 126/86; PULSE 68
--- NOTE | 2022-04-05 15:58 | PM.OBPNLAB ---
Date/Time Date Patient Seen: 04/05/22 Time Patient Seen: 16:09 Pain Control Pain control: tolerating well Comments: Mild cramps. Has just received 2nd dose of misoprostol. Resting and ambulating in room ad niurka. Pelvic Exam Effacement (%): 50 station: -3 Amniotic membrane status: Intact Comments: Exam not performed. Contractions pattern not sufficient to indicate need for exam. Contractions Date/Time contractions began: Feeling irregular, mild cramping. Contraction frequency every 3-8 minutes. Status status: Category l Heart Rate Baseline: 120 Monitor Accelerations: Present Monitor Decelerations: Variable (x1) Monitor Variability: Moderate Assessment and Plan Comments: ASSESSMENT: Not in labor Ongoing induction FHR Cat I PLAN: Continue misoprostol cervical ripening; 50 mcg buccal q 4 hours. SVE as indicated based on objective findings. Reassess PRN or in 4-8 hours.
[2022-04-05] MEDS: ACETAMINOPHEN 325 MG TABLET 650 MG PO (18:38)
--- NOTE | 2022-04-05 20:58 | PM.OBPNLAB ---
Date/Time Date Patient Seen: 04/05/22 Time Patient Seen: 20:59 Pain Control Comments: Not tolerating contractions well at this time. Has tried nitrous but still rating contractions 9/10. Tearful. S/P cervadil x 12 hours, misoprostol 50 mcg buccal x 2 doses Pelvic Exam Dilation (cm): 1 Effacement (%): 50 station: -3 Amniotic membrane status: Ruptured Comments: SROM at 1999, clear fluid. Contractions Date/Time contractions began: early labor as of 1999 tonight. Contractions on admission: none Monitor mode: External (continuous) Contraction pattern: Irregular Contraction intensity: Moderate Status status: Category ll Heart Rate Baseline: 120 Monitor Accelerations: Absent Monitor Decelerations: Late (not recurrent) and Variable Assessment and Plan Assessment: induction ongoing Plan: begin patient augmentation (PRN FHR) Comments: IOL for pre-eclampsia, BP stable on labetalol and nifedipine 36w5d Early labor SROM x 1 hour GBS negative Low dose pitocin for cervical ripening planned to begin but RN has not yet started it yet. Review with RN had discussed with patient to avoid epidural until 4-5 cm if possible to decrease interventions and increase odds of vaginal delivery. She had been amenable to trying other methods of pain relief prior to pain starting. RN will try to avoid epidural for 1-2 hours.
[2022-04-05] MEDS: LACTATED RINGERS 1,000 ML 100 ML IV (21:14)
[2022-04-05] MEDS: NIFEdipine 30 MG TAB ER PO (21:30)
[2022-04-05 21:56] LABS: Add Manual Diff / Slide Review NO; Basophils Absolute Auto 0 /uL (0-100); Basophils Percent Auto 0.3 % (0-2); Eosinophils Absolute Auto 100 /uL (0-450); Eosinophils Percent Auto 0.9 % (2-4); Hematocrit 35.3 % (36-46); Hemoglobin 11.8 g/dL (12.0-16.0); Lymphocytes Absolute Auto 2700 /uL (1100-4500); Lymphocytes Percent Auto 20.8 % (25-40); Mean Corpuscular HGB Conc 33.3 % (30-36); Mean Corpuscular Hemoglobin 29.6 PG (26-34); Mean Corpuscular Volume 88.7 fL (80-100); Monocytes Absolute Auto 1200 /uL (0-900); Neutrophils Absolute Auto 9100 /uL (1500-7000); Platelet Count 245 X10^3/uL (150-400); Red Blood Cell Count 3.98 X10^6/uL (4.0-5.2); Red Cell Distribution Width 14.5 % (11.6-14.8); White Blood Cell Count 13.1 X10^3/uL (4.5-11.0)
[2022-04-05 22:00] LABS: Aspartate Aminotransferase 26 IU/L (14-36); BUN Creatinine Ratio 19.2 (6-22); Blood Urea Nitrogen 19 mg/dL (7-17); Estimated Glomerular Filt Rate > 60 mL/min (>60); Uric Acid 8.7 mg/dL (2.5-6.2)
[2022-04-05] MEDS: FENT 2MCG/ML BUPIV 0.125% EPI 200 MCG/100 ML PLAST..BAG 10 MCG EPIDURAL (22:47)
[2022-04-05] MEDS: CALCIUM CARBONATE 500 MG TAB 1000 MG PO (23:47)
[2022-04-06] VITALS (7 sets, daily range): BP systolic 123–140; BP diastolic 78–94; PULSE 69–83; RESP 17–20; TEMP 37.1; O2SAT 95–97
[2022-04-06] MEDS: FENT 2MCG/ML BUPIV 0.125% EPI 200 MCG/100 ML PLAST..BAG 12 MCG EPIDURAL (04:21)
[2022-04-06] MEDS: NIFEdipine 30 MG TAB ER PO (08:48)
[2022-04-06] MEDS: LABETALOL 100 MG TABLET 300 MG PO ×3 (08:48→22:10)
--- NOTE | 2022-04-06 10:08 | PM.OBPNLAB ---
Date/Time Date Patient Seen: 04/06/22 Time Patient Seen: 10:08 Pain Control Pain control: epidural Pelvic Exam Dilation (cm): 5 Effacement (%): 90 station: -2 Amniotic membrane status: Ruptured (at 8 pm last night, clear fluid) Contractions Contractions on admission: none Monitor mode: External (continuous) Contraction frequency (min): 3 Contraction pattern: Irregular Contraction intensity: Mild Status status: Category ll Heart Rate Baseline: 120 Monitor Accelerations: Present (small, intermittent) Monitor Decelerations: Early and Late Monitor Variability: Minimal Assessment and Plan Assessment: other ( intolerance of labor, remote from delivery) Comments: Assessment: 22-year-old 1 para 0 at 36-,6/7 weeks gestation with intolerance of labor, remote from delivery Preeclampsia Plan: Proceed to primary C section The risks, benefits, and alternatives to the procedure were explained to the patient. The risks including bleeding, infection, injury to the bowel, bladder, or ureters. She understands all of these risks and agrees to proceed. A full par Q was held and consent form was signed. Consent for observe her signed. Pediatrics notified.
[2022-04-06] MEDS: LACTATED RINGERS 1,000 ML 100 ML IV ×2 (10:11→11:11)
[2022-04-06] MEDS: CITRIC ACID/SODIUM CITRATE 15 ML SOLUTION 30 ML PO (10:26)
[2022-04-06] MEDS: CEFAZOLIN 3 GM IN 0.9 % NACL 3 GM/100 ML PLAST..BAG IV (10:40)
[2022-04-06] MEDS: AZITHROMYCIN 500 MG in DEXTROSE 5% IN WATER 250 ML 250 MG IV (10:45)
--- NOTE | 2022-04-06 11:19 | SUR.OPER ---
Supine on Padded OR bed, head on pillow, safety belt at thigh, arms secured on padded arm boards at <90 degrees abduction. Bump under right buttock. Legs uncrossed with pillow under knees, gel pad to heels, tape over blanket to lower legs.
--- NOTE | 2022-04-06 11:23 | SUR.OPER ---
cord blood and placenta to OB RN
[2022-04-06] MEDS: BACITRACIN OINT 0.9 GM PCKT 1 APPLIC TOP (11:56)
--- NOTE | 2022-04-06 12:08 | PM.PREOP ---
Pre-operative Note COVID-19 COVID-19 status: Negative Result date/Date tested (Pos, Neg/Pending): 04/04/22 Criteria for continued procedure: Delay expected to result in less-positive ultimate med/surg outcome Interval Note History & Physical reviewed/Exam performed by Physician: Yes Changes to H&P: No H&P completed within 30 days and has changed as indicated here:: 04/04/22
--- NOTE | 2022-04-06 12:09 | P.OP_ITS ---
Operative Date/Time/Diagnoses Date of procedure: 04/06/22 Time of procedure: 12:09 Pre-op diagnosis: 36-,6/7 weeks gestation Preeclampsia intolerance of labor, remote from delivery Post-op diagnosis: same Procedure & Clinicians Procedure: Primary low-transverse section Same procedure as scheduled: Yes Indications: 36-,6/7 weeks gestation intolerance of labor, remote from delivery Surgeon: Sushila Alfaro Yes if Unassisted: No Distribution Manager: Lana Niño Reason for Distribution Manager: The video library assistant was necessary to retract upon entry into the abdomen and uterus. She assisted with fundal pressure on delivery of the . She assisted with closure by retraction, clipping of suture, and closure of the contralateral fascia. Anesthesia Type: Epidural (With Duramorph) Operative Notes Findings: Live female in the NEHA presentation Thin umbilical cord Nuchal cord x1 Small placenta with calcification Cord pH: Arterial 7.174, venous 7.203 Closure Type: primary Specimen(s): cord blood, cord pH and placenta Intraoperative meds administered: Duramorph, Ketorolac and Pitocin Applied: Catheter (To continuous drainage) Estimated Blood Loss (mL): 350 Blood products transfused: none Procedure in detail: The patient was taken to the operating room where she was placed in the dorsal supine position with a leftward tilt. She was prepped and draped in the usual sterile fashion. A timeout was performed. After epidural analgesia was found to be adequate, a Pfannenstiel skin incision was made 2 fingerbreadths above the pubic symphysis and carried through to the underlying layer fascia. The fascia was nicked in the midline, and the incision extended bilaterally with the Alvarado scissors. The superior aspect of the fascial incision was grasped with a [place] clamps, elevated, and the underlying rectus muscles dissected off sharply and bluntly. Attention was then turned to the inferior aspect of this incision which in a similar fashion was grasped with a [place] clamps, elevated, and the underlying rectus muscles dissected off sharply and bluntly. The rectus muscles were in the midline. The peritoneum was identified, grasped between 2 hemostats, and entered sharply with the Metzenbaum scissors. This incision was extended superiorly and inferiorly with good visualization of the bladder. The bladder blade was inserted. The vesicouterine peritoneum was identified, grasped with the pickup, and entered sharply with the Metzenbaum scissors. This incision was extended bilaterally, and the bladder flap was created digitally. The bladder blade was reinserted. The lower uterine segment was incised in a transverse fashion with the scalpel. Upon entering the amniotic sac there was a small amount of clear amniotic fluid. A nuchal cord x 1 was reduced. The was delivered by total breech extraction due to the head being deep in the pelvis. The nose and mouth were suctioned with bulb suction. The cord was double clamped and cut. The was handed off to waiting RN and RT. Cord bloods were obtained. The placenta was delivered manually. The uterus was cleared of all clots and debris. The uterine incision was repaired with #1 chromic in a running interlocking fashion, and a second layer the same suture was used for an imbricating layer. Hemostasis was achieved. The tubes and ovaries were examined and were found to be normal. The gutters were cleared of all clots and debris. The bladder flap was reapproximated using 2-0 Vicryl in a running fashion. The parietal peritoneum was closed using 2-0 Vicryl in a running fashion. The fascia was reapproximated using 0 Vicryl in a running fashion. Subcutaneous layer was copiously irrigated with warm normal saline. 5 simple interrupted sutures of 3-0 Vicryl were placed to reapproximate the subcutaneous layer. The skin was closed with 4-0 Monocryl in a subcuticular fashion. Steri-Strips were placed. An Aquacel dressing was placed. The uterus was expressed of a small amount of old blood. Sponge, lap, and instrument counts were correct x-2. The patient tolerated the procedure well, and was taken to PACU in stable condition. Complications: none [place] Baby 1: Gender: Female Presentation: vertex Position: Left Occiput Anterior Placental Delivery Description: Expressed Cord Vessel Description: 3 Vessels, Nuchal Cord (x1), Loose and Reduced score (1 min): 2 score (5 min): 5 score (10 min): 9 weight: 4 lb 12.6 oz Post-operative Condition: stable Disposition: PACU Aftercare: routine postop
--- NOTE | 2022-04-06 14:08 | PM.OBPNLAB ---
Date/Time Date Patient Seen: 04/06/22 Time Patient Seen: 01:00 Pain Control Pain control: other Comments: Not tolerating contractions well. Requesting epidural. Pelvic Exam Dilation (cm): 3 Effacement (%): 90 station: -2 Amniotic membrane status: Ruptured (at 8 pm last night, clear fluid) Comments: RN exam Contractions Monitor mode: External (continuous) Contraction frequency (min): 3 Contraction pattern: Irregular Contraction intensity: Mild Status status: Category ll Heart Rate Baseline: 115 Monitor Accelerations: Absent Monitor Decelerations: Periodic Monitor Variability: Moderate Assessment and Plan Assessment: induction ongoing Plan: continuous present management Comments: Encourage no epidural yet. Try tub, nitrous to provide comfort/support. If not successful, epidural okay.
--- NOTE | 2022-04-06 14:20 | DI.CT.S_ITS ---
PROCEDURE: CT HEAD/BRAIN WO CON INDICATIONS: preeclampsia, severe features TECHNIQUE: Noncontrast 4.5 mm thick angled axial sections acquired from the foramen magnum to the vertex, with coronal and sagittal reformats. For radiation dose reduction, the following was used: automated exposure control, adjustment of mA and/or kV according to patient size. COMPARISON: None. FINDINGS: Image quality: Excellent. CSF spaces: Basal cisterns are patent. No extra-axial fluid collections. Ventricles are normal in size and shape. Brain: No midline shift. No intracranial masses or hemorrhage. Herr-white matter interface is normal. Skull and face: Calvarium and visualized facial bones are intact, without suspicious lesions. Sinuses: Visualized sinuses and mastoids are clear. IMPRESSION: Normal noncontrast head CT, without acute intracranial hemorrhage. If it would be helpful for clinical management decision making, please consider a dedicated, scheduled brain MRI for further evaluation (assuming that there is no contraindication). Dictated by: David Raphael M.D. on 04/06/2022 at 14:07 Approved by: David Raphael M.D. on 04/06/2022 at 14:08
--- NOTE | 2022-04-06 14:23 | PM.PROC.1 ---
Procedures Date/Time Date of procedure: 04/06/22 Time of procedure: 11:00 General Procedure description: I assested the on-call OB with the section for this patient. My responsibilities included retraction, suction, fundal pressure, visualization of tissue, suturing fascia, following with suture during closure. Please see OB note for details.
[2022-04-06] MEDS: MAGNESIUM SULFATE 4 GM/100 ML PIGGYBACK IV (14:53)
[2022-04-06 15:16] LABS: Add Manual Diff / Slide Review NO; Basophils Absolute Auto 100 /uL (0-100); Basophils Percent Auto 0.5 % (0-2); Eosinophils Absolute Auto 0 /uL (0-450); Hematocrit 33.5 % (36-46); Hemoglobin 11.2 g/dL (12.0-16.0); Lymphocytes Absolute Auto 1500 /uL (1100-4500); Lymphocytes Percent Auto 9.3 % (25-40); Mean Corpuscular HGB Conc 33.5 % (30-36); Mean Corpuscular Hemoglobin 29.5 PG (26-34); Mean Corpuscular Volume 88.2 fL (80-100); Monocytes Absolute Auto 1400 /uL (0-900); Monocytes Percent Auto 8.9 % (3-14); Neutrophils Absolute Auto 13000 /uL (1500-7000); Neutrophils Percent Auto 81.3 % (50-75); Platelet Count 250 X10^3/uL (150-400); Red Cell Distribution Width 14.6 % (11.6-14.8)
[2022-04-06 15:28] LABS: Alanine Aminotransferase 21 IU/L (<35); Alkaline Phosphatase 100 U/L (38-126); Aspartate Aminotransferase 30 IU/L (14-36); Bilirubin Total 0.3 mg/dL (0.2-1.3); Blood Urea Nitrogen 22 mg/dL (7-17); Calcium 8.5 mg/dL (8.4-10.2); Carbon Dioxide 20 mmol/L (22-32); Chloride 107 mmol/L (98-107); Estimated Glomerular Filt Rate > 60 mL/min (>60); Glucose 87 mg/dL (70-100); HEMOLYSIS < 15 (0-50); Potassium 4.8 mmol/L (3.4-5.1); Sodium 130 mmol/L (137-145); Total Protein 5.5 g/dL (6.3-8.2)
[2022-04-06] MEDS: MAGNESIUM SULFATE 20 GM/500 ML IV.SOLN IV (15:34)
[2022-04-06] MEDS: ACETAMINOPHEN 325 MG TABLET 650 MG PO ×2 (16:35→22:08)
[2022-04-06] MEDS: KETOROLAC 30 MG/ML VIAL IV (18:14)
[2022-04-06 21:50] LABS: Albumin 2.6 g/dL (3.5-5.0); Albumin Globulin Ratio 0.9 (1.0-2.8); Globulin 2.9 g/dL (1.7-4.1)
[2022-04-06] MEDS: ALBUMIN HUMAN 25 GM/100 ML VIAL IV (22:20)
[2022-04-06 23:21] LABS: Magnesium 5.2 mg/dL (1.6-2.3)
[2022-04-07] MEDS: KETOROLAC 30 MG/ML VIAL IV ×2 (00:38→06:24)
[2022-04-07] MEDS: FUROSEMIDE 20 MG/2 ML VIAL IV (00:40)
[2022-04-07] MEDS: MAGNESIUM SULFATE 20 GM/500 ML IV.SOLN IV ×3 (01:40→22:05)
[2022-04-07] MEDS: ACETAMINOPHEN 325 MG TABLET 650 MG PO ×4 (04:01→22:01)
[2022-04-07] MEDS: OXYCODONE IR 5 MG TABLET PO ×4 (04:02→20:14)
[2022-04-07 06:23] VITALS: BP 123/81; PULSE 68
[2022-04-07] MEDS: LABETALOL 100 MG TABLET 300 MG PO ×3 (06:23→22:02)
[2022-04-07 06:31] LABS: Add Manual Diff / Slide Review NO; Basophils Absolute Auto 100 /uL (0-100); Basophils Percent Auto 0.5 % (0-2); Eosinophils Absolute Auto 100 /uL (0-450); Eosinophils Percent Auto 0.8 % (2-4); Hematocrit 28.7 % (36-46); Hemoglobin 9.8 g/dL (12.0-16.0); Lymphocytes Absolute Auto 2700 /uL (1100-4500); Lymphocytes Percent Auto 22.4 % (25-40); Mean Corpuscular HGB Conc 34.2 % (30-36); Mean Corpuscular Hemoglobin 29.9 PG (26-34); Mean Corpuscular Volume 87.4 fL (80-100); Monocytes Absolute Auto 900 /uL (0-900); Monocytes Percent Auto 7.6 % (3-14); Neutrophils Absolute Auto 8300 /uL (1500-7000); Neutrophils Percent Auto 68.7 % (50-75); Platelet Count 199 X10^3/uL (150-400); Red Blood Cell Count 3.28 X10^6/uL (4.0-5.2); Red Cell Distribution Width 14.5 % (11.6-14.8); White Blood Cell Count 12.1 X10^3/uL (4.5-11.0)
[2022-04-07 06:45] LABS: BUN Creatinine Ratio 19.4 (6-22); Blood Urea Nitrogen 20 mg/dL (7-17); Calcium 7.4 mg/dL (8.4-10.2); Carbon Dioxide 23 mmol/L (22-32); Chloride 105 mmol/L (98-107); Estimated Glomerular Filt Rate > 60 mL/min (>60); Glucose 78 mg/dL (70-100); HEMOLYSIS < 15 (0-50); Potassium 4.1 mmol/L (3.4-5.1); Sodium 130 mmol/L (137-145)
[2022-04-07 06:48] LABS: Magnesium 5.9 mg/dL (1.6-2.3)
[2022-04-07] MEDS: DOCUSATE 100 MG CAPSULE PO (09:12)
[2022-04-07] MEDS: PRENATAL VIT,CALC/IRON/FOLIC 1 TABLET 1 TAB PO (09:12)
[2022-04-07] MEDS: NIFEdipine 30 MG TAB ER PO (09:12)
[2022-04-07] MEDS: IBUPROFEN 600 MG TABLET PO ×2 (12:01→18:27)
[2022-04-07] MEDS: CALCIUM GLUCONATE 4.65 MEQ in SODIUM CHLORIDE 0.9% 50 ML 180 MEQ IV (15:27)
[2022-04-07] MEDS: SODIUM CHLORIDE 0.9% 1,000 ML 50 ML IV (15:27)
[2022-04-07 19:01] LABS: Add Manual Diff / Slide Review NO; Basophils Absolute Auto 0 /uL (0-100); Basophils Percent Auto 0.4 % (0-2); Eosinophils Absolute Auto 200 /uL (0-450); Eosinophils Percent Auto 1.9 % (2-4); Hematocrit 29.2 % (36-46); Hemoglobin 9.9 g/dL (12.0-16.0); Lymphocytes Absolute Auto 2000 /uL (1100-4500); Lymphocytes Percent Auto 15.3 % (25-40); Mean Corpuscular HGB Conc 33.9 % (30-36); Mean Corpuscular Hemoglobin 30.1 PG (26-34); Mean Corpuscular Volume 88.7 fL (80-100); Monocytes Absolute Auto 900 /uL (0-900); Monocytes Percent Auto 7.4 % (3-14); Neutrophils Absolute Auto 9700 /uL (1500-7000); Platelet Count 216 X10^3/uL (150-400); Red Blood Cell Count 3.29 X10^6/uL (4.0-5.2); White Blood Cell Count 12.9 X10^3/uL (4.5-11.0)
--- NOTE | 2022-04-07 19:12 | P.PNOB_ITS ---
Subjective - OB Subjective Patient comments: no complaints, pain well controlled, tolerating diet and other (No headache or visual changes) [place] baby status: doing well and nursing well feeding status: exclusively breast feeding Date Patient Seen: 04/07/22 Time Patient Seen: 19:12 Interval history: Patient was placed on magnesium sulfate last evening due to blurred vision and headache. Reflexes were 3+. A CT scan of the head was performed and was negative for any bleed/stroke. Patient is feeling much better today. Patient received 25 g of albumin followed by 20 mg of IV Lasix and had significant diuresis of over 2 L. Exam Vital Signs (past 8 hours): Oxygen Delivery Method Room Air Narrative Exam Narrative: Generally: Patient is sitting up in bed, no acute distress Lungs: Clear to auscultation bilaterally Cardiovascular: Regular rate and rhythm Fundus: Firm at U -2 Extremities: 2+ edema to the knees, 3+ DTRs, no clonus Objective Labs Result Diagrams: 04/07/22 06:17 04/07/22 06:17 Labs: Laboratory Results - last 24 hr 04/06/22 04/06/22 04/07/22 15:00 22:15 06:17 WBC RBC Hgb Hct MCV MCH MCHC RDW Plt Count Neut % (Auto) Lymph % (Auto) [place] % (Auto) Eos % (Auto) Baso % (Auto) Neut # (Auto) Lymph # (Auto) [place] # (Auto) Eos # (Auto) Baso # (Auto) Sodium Potassium Chloride Carbon Dioxide BUN Creatinine Estimated GFR BUN/Creatinine Ratio Glucose Uric Acid Calcium Magnesium 5.2 H* 5.9 H* Albumin 2.6 L Globulin 2.9 Albumin/Globulin Ratio 0.9 L 04/07/22 04/07/22 06:17 06:17 WBC 12.1 H RBC 3.28 L Hgb 9.8 L Hct 28.7 L MCV 87.4 MCH 29.9 MCHC 34.2 RDW 14.5 Plt Count 199 Neut % (Auto) 68.7 Lymph % (Auto) 22.4 L [place] % (Auto) 7.6 Eos % (Auto) 0.8 L Baso % (Auto) 0.5 Neut # (Auto) 8300 H Lymph # (Auto) 2700 [place] # (Auto) 900 Eos # (Auto) 100 Baso # (Auto) 100 Sodium 130 L Potassium 4.1 Chloride 105 Carbon Dioxide 23 BUN 20 H Creatinine 1.03 Estimated GFR > 60 BUN/Creatinine Ratio 19.4 Glucose 78 Uric Acid 9.0 H Calcium 7.4 L Magnesium Albumin Globulin Albumin/Globulin Ratio Assessment & Plan Plan day: 1 Comments: Continue magnesium sulfate until tomorrow Continue monitoring of urine output Repeat labs ordered for tomorrow Fluids switched to normal saline Time Spent With Patient Time: Total time spent is greater than 50% in coordination of care (as documented) at patient's floor/unit and/or counseling patient: Time with patient: 15-24 minutes
[2022-04-07 19:16] LABS: Aspartate Aminotransferase 27 IU/L (14-36); BUN Creatinine Ratio 16.3 (6-22); Blood Urea Nitrogen 17 mg/dL (7-17); Estimated Glomerular Filt Rate > 60 mL/min (>60); Uric Acid 8.8 mg/dL (2.5-6.2)
[2022-04-07 19:28] LABS: Magnesium 6.7 mg/dL (1.6-2.3)
[2022-04-07 22:02] VITALS: BP 132/84; PULSE 79
[2022-04-07 23:00] VITALS: BP 131/87; PULSE 76
[2022-04-08] MEDS: OXYCODONE IR 5 MG TABLET PO ×5 (00:33→20:20)
[2022-04-08] MEDS: IBUPROFEN 600 MG TABLET PO ×5 (00:33→23:08)
[2022-04-08] MEDS: ACETAMINOPHEN 325 MG TABLET 650 MG PO ×4 (04:34→23:09)
[2022-04-08 06:33] VITALS: BP 120/76; PULSE 77
[2022-04-08] MEDS: LABETALOL 100 MG TABLET 300 MG PO ×3 (06:33→22:27)
[2022-04-08] MEDS: MAGNESIUM SULFATE 20 GM/500 ML IV.SOLN IV (07:40)
[2022-04-08] MEDS: DOCUSATE 100 MG CAPSULE PO (09:02)
[2022-04-08] MEDS: NIFEdipine 30 MG TAB ER PO (09:02)
[2022-04-08] MEDS: PRENATAL VIT,CALC/IRON/FOLIC 1 TABLET 1 TAB PO (09:02)
[2022-04-08 10:47] LABS: Add Manual Diff / Slide Review NO; Basophils Absolute Auto 100 /uL (0-100); Basophils Percent Auto 0.6 % (0-2); Eosinophils Absolute Auto 300 /uL (0-450); Eosinophils Percent Auto 2.9 % (2-4); Hematocrit 29.4 % (36-46); Lymphocytes Absolute Auto 1800 /uL (1100-4500); Lymphocytes Percent Auto 18.1 % (25-40); Mean Corpuscular HGB Conc 33.8 % (30-36); Mean Corpuscular Hemoglobin 29.8 PG (26-34); Mean Corpuscular Volume 88.2 fL (80-100); Monocytes Absolute Auto 500 /uL (0-900); Monocytes Percent Auto 4.9 % (3-14); Neutrophils Absolute Auto 7400 /uL (1500-7000); Neutrophils Percent Auto 73.5 % (50-75); Platelet Count 222 X10^3/uL (150-400); Red Blood Cell Count 3.34 X10^6/uL (4.0-5.2); White Blood Cell Count 10.1 X10^3/uL (4.5-11.0)
[2022-04-08 11:06] LABS: Aspartate Aminotransferase 25 IU/L (14-36); BUN Creatinine Ratio 15.2 (6-22); Blood Urea Nitrogen 14 mg/dL (7-17); Estimated Glomerular Filt Rate > 60 mL/min (>60); Uric Acid 8.1 mg/dL (2.5-6.2)
[2022-04-08 11:09] LABS: Magnesium 6.3 mg/dL (1.6-2.3)
[2022-04-08] MEDS: SODIUM CHLORIDE 0.9% 1,000 ML 50 ML IV (12:17)
[2022-04-08 14:03] LABS: BUN Creatinine Ratio 15.2 (6-22); Blood Urea Nitrogen 14 mg/dL (7-17); Carbon Dioxide 23 mmol/L (22-32); Chloride 102 mmol/L (98-107); Estimated Glomerular Filt Rate > 60 mL/min (>60); Glucose 107 mg/dL (70-100); HEMOLYSIS < 15 (0-50); Potassium 3.9 mmol/L (3.4-5.1); Sodium 131 mmol/L (137-145)
[2022-04-08 14:08] VITALS: BP 127/79; PULSE 74
[2022-04-08 14:08] LABS: Calcium 6.6 mg/dL (8.4-10.2)
[2022-04-08] MEDS: FUROSEMIDE 20 MG/2 ML VIAL IV (14:08)
--- NOTE | 2022-04-08 19:09 | P.PNOB_ITS ---
Subjective - OB Subjective Patient comments: no complaints, pain well controlled, tolerating diet and flatus present baby status: doing well [place] feeding status: pumping and bottle feeding Narrative: Gibbs catheter came out at 5:00 p.m.. Was kept in a little longer due to the IV Lasix. Patient has not voided on her own as of yet. Pain is fairly well controlled. No headache or visual changes. She feels much better off of the magnesium sulfate. Date Patient Seen: 04/08/22 Time Patient Seen: 19:10 Exam Vital Signs (past 8 hours): - 04/08/22 14:08 Pulse Rate 74 Blood Pressure 127/79 Oxygen Delivery Method Room Air Narrative Exam Narrative: Generally: Patient is sitting up in bed, pumping, no acute distress Lungs: Clear to auscultation bilaterally Cardiovascular: Regular rate and rhythm Fundus: Firm at U -2 Incision: Clean dry and intact with Aquacel dressing Extremities: 1+ edema, 2+ DTRs, no clonus Objective Labs Result Diagrams: 04/08/22 10:35 04/08/22 13:45 Labs: Laboratory Results - last 24 hr 04/07/22 04/07/22 04/07/22 18:50 18:50 18:50 WBC 12.9 H RBC 3.29 L Hgb 9.9 L Hct 29.2 L MCV 88.7 MCH 30.1 MCHC 33.9 RDW 15.0 H Plt Count 216 Neut % (Auto) 75.0 Lymph % (Auto) 15.3 L [place] % (Auto) 7.4 Eos % (Auto) 1.9 L Baso % (Auto) 0.4 Neut # (Auto) 9700 H Lymph # (Auto) 2000 [place] # (Auto) 900 Eos # (Auto) 200 Baso # (Auto) 0 Sodium Potassium Chloride Carbon Dioxide BUN 17 Creatinine 1.04 Estimated GFR > 60 BUN/Creatinine Ratio 16.3 Glucose Uric Acid 8.8 H Calcium Magnesium 6.7 H* AST 27 04/08/22 04/08/22 04/08/22 02:10 10:35 10:35 WBC 10.1 RBC 3.34 L Hgb 10.0 L Hct 29.4 L MCV 88.2 MCH 29.8 MCHC 33.8 RDW 15.0 H Plt Count 222 Neut % (Auto) 73.5 Lymph % (Auto) 18.1 L [place] % (Auto) 4.9 Eos % (Auto) 2.9 Baso % (Auto) 0.6 Neut # (Auto) 7400 H Lymph # (Auto) 1800 [place] # (Auto) 500 Eos # (Auto) 300 Baso # (Auto) 100 Sodium Potassium Chloride Carbon Dioxide BUN 14 Creatinine 0.92 Estimated GFR > 60 BUN/Creatinine Ratio 15.2 Glucose Uric Acid 8.1 H Calcium Magnesium 6.0 H* 6.3 H* AST 25 04/08/22 13:45 WBC RBC Hgb Hct MCV MCH MCHC RDW Plt Count Neut % (Auto) Lymph % (Auto) [place] % (Auto) Eos % (Auto) Baso % (Auto) Neut # (Auto) Lymph # (Auto) [place] # (Auto) Eos # (Auto) Baso # (Auto) Sodium 131 L Potassium 3.9 Chloride 102 Carbon Dioxide 23 BUN 14 Creatinine 0.92 Estimated GFR > 60 BUN/Creatinine Ratio 15.2 Glucose 107 H Uric Acid Calcium 6.6 L Magnesium AST Assessment & Plan Plan day: 2 Comments: Repeat preeclampsia labs in the morning Possible home tomorrow if labs are trending towards normal Time Spent With Patient Time: Total time spent is greater than 50% in coordination of care (as documented) at patient's floor/unit and/or counseling patient: Time with patient: 15-24 minutes
[2022-04-08 22:27] VITALS: BP 131/77; PULSE 79
[2022-04-09] MEDS: OXYCODONE IR 5 MG TABLET PO ×2 (02:28→09:27)
[2022-04-09] MEDS: IBUPROFEN 600 MG TABLET PO ×2 (05:01→11:31)
[2022-04-09] MEDS: ACETAMINOPHEN 325 MG TABLET 650 MG PO ×2 (05:02→11:32)
[2022-04-09 06:30] LABS: Add Manual Diff / Slide Review NO; Basophils Absolute Auto 0 /uL (0-100); Basophils Percent Auto 0.3 % (0-2); Eosinophils Absolute Auto 300 /uL (0-450); Eosinophils Percent Auto 2.9 % (2-4); Hematocrit 27.6 % (36-46); Hemoglobin 9.5 g/dL (12.0-16.0); Lymphocytes Absolute Auto 2000 /uL (1100-4500); Lymphocytes Percent Auto 21.7 % (25-40); Mean Corpuscular HGB Conc 34.5 % (30-36); Mean Corpuscular Hemoglobin 30.2 PG (26-34); Mean Corpuscular Volume 87.4 fL (80-100); Monocytes Absolute Auto 700 /uL (0-900); Monocytes Percent Auto 7.5 % (3-14); Neutrophils Absolute Auto 6300 /uL (1500-7000); Neutrophils Percent Auto 67.6 % (50-75); Platelet Count 201 X10^3/uL (150-400); Red Blood Cell Count 3.16 X10^6/uL (4.0-5.2); Red Cell Distribution Width 14.8 % (11.6-14.8); White Blood Cell Count 9.4 X10^3/uL (4.5-11.0)
[2022-04-09 06:33] VITALS: BP 127/79; PULSE 83
[2022-04-09] MEDS: LABETALOL 100 MG TABLET 300 MG PO (06:33)
[2022-04-09 06:34] LABS: Aspartate Aminotransferase 39 IU/L (14-36); BUN Creatinine Ratio 15.4 (6-22); Blood Urea Nitrogen 14 mg/dL (7-17); Estimated Glomerular Filt Rate > 60 mL/min (>60); Uric Acid 7.7 mg/dL (2.5-6.2)
[2022-04-09 06:44] LABS: BUN Creatinine Ratio 15.1 (6-22); Blood Urea Nitrogen 14 mg/dL (7-17); Calcium 7.2 mg/dL (8.4-10.2); Carbon Dioxide 25 mmol/L (22-32); Chloride 106 mmol/L (98-107); Estimated Glomerular Filt Rate > 60 mL/min (>60); Glucose 81 mg/dL (70-100); HEMOLYSIS < 15 (0-50); Sodium 135 mmol/L (137-145)
[2022-04-09] MEDS: PRENATAL VIT,CALC/IRON/FOLIC 1 TABLET 1 TAB PO (09:27)
[2022-04-09] MEDS: DOCUSATE 100 MG CAPSULE PO (09:27)
[2022-04-09] MEDS: NIFEdipine 30 MG TAB ER PO (09:27)
[2022-04-09] MEDS: MEASLES,MUMPS,RUBELLA VACC/PF 0.5 ML VIAL SUBCUT (09:28)
--- NOTE | 2022-05-27 06:31 | P.DS_ITS ---
Discharge Providers Provider Date of admission: 04/04/22 18:18 Discharge Date: 04/09/22 Primary care physician: Valentina RAZO Provider Consults: 04/06/22 12:17 Consult to Barrel Assembly Inspector Routine Comment: Anesthesia for epidural Discharge provider: Sushila Lynn MD Summary Hospital Course Date Patient Seen: 04/09/22 Time Patient Seen: 07:45 Diagnoses: 36-,4/7 weeks gestation Preeclampsia with severe features Cervical ripening with Cervidil and misoprostol Pitocin induction of labor Epidural analgesia intolerance of labor Primary low-transverse section Magnesium sulfate Hospital Course: Patient is a 22-year-old 1 para 1 who presented on April 04, 2022 at 36-,4/7 weeks gestation with preeclampsia with severe features. Cervical ripening was initiated. Her cervix remained unfavorable on April 05, 2022, after the Cervidil was removed. She was started on misoprostol orally. She received 2 doses. She received an epidural for pain management. On April 06, 2022 she had progressed to 5 cm/90% effaced/-2 station. She began having late decelerations. A decision was made to proceed to a primary low-transverse section. At the time of she was found to have a very thin umbilical cord and a nuchal cord x1. Cord bloods were venous 7.2 and arterial 7.17. On April 06, 2022 she was also started on magnesium sulfate due to headache, blurred vision, and brisk reflexes. She received a CT scan of her head which was negative. She remained on magnesium sulfate for 24 hours. Her Gibbs catheter was removed after diuresis. On April 09, 2022 she was discharged home to follow-up in 1 week for blood pressure check. Patient went home on labetalol and nifedipine for control of blood pressure. Peripartum Data Delivery Method: Emergency Section Procedures: Cervidil cervical ripening Misoprostol cervical ripening Pitocin induction of labor Artificial rupture of membranes Epidural analgesia Primary low-transverse section Magnesium sulfate complications: none 1: Gender: Female Disposition of : home Status at Discharge Cognitive/behavioral status at discharge: oriented Functional status at discharge: independent ambulation Overall status at discharge: patient is progressing back to baseline Time Spent with Patient Time attestation: Total time spent providing and/or coordinating discharge services: Time spent: Less than 30 minutes Objective Labs 04/09/22 06:11 04/09/22 06:11 Exam Vital Signs (past 8 hours): Oxygen Delivery Method Room Air Narrative Exam Narrative: Generally: Patient is sitting up in bed, no acute distress Lungs: Clear to auscultation bilaterally Cardiovascular: Regular rate and rhythm Fundus: Firm at U -2 Incision: Clean dry and intact with Aquacel dressing Extremities: 1+ edema, 1+ DTRs, negative [place] Discharge Plan Discharge Plan Patient Disposition: Home Provider Discharge Comment: Call with fever, chills, redness or drainage around incision or bleeding vaginally more than a pad in an hour Ibuprofen 600mg every 6 hours as needed Tylenol 650mg every 6 hours as needed Push fluids Stool softners Elevate legs Discharge orders & Medications Prescriptions: New labetalol 300 mg tablet 300 mg PO TID Qty: 60 1RF nifedipine 30 mg tablet extended release 30 mg PO DAILY Qty: 30 3RF Continued prenat.vits,zara,[id number] Tablet 1 tab PO DAILY Discontinued omeprazole 40 mg capsule,delayed release(DR/EC) 40 mg PO DAILY Qty: 30 3RF labetalol 200 mg tablet 400 mg PO BID Qty: 30 0RF Follow up/Referrals: Sushila Lynn MD [Physician] - 04/14/22 1:45 pm Diet/Activity/Treatments Diet: Regular Activity: No heavy lifting Skin/Wound/Dressing Care Report to your healthcare provider any signs of infection, such as:: chills, fever, increased pain, unusual drainage and unusual redness Dressing: Do not remove Visit Report/Discharge Packet Instructions: DI for , DI for Pre-eclampsia, DI for Prescription Opioid Use Stand Alone Forms: Discharge: Care, Patient Portal/API, Stroke Signs & Symptoms Discharge Data Primary Care Provider: Valentina Mcconnell
== END 2022-04-09 12:05 | disposition home or self-care (01) | DRG 788 ==
PROVIDERS: Advanced Practice Midwife; Obstetrics & Gynecology; Admitting Provider Obstetrics & Gynecology; Referring Provider Obstetrics & Gynecology; Visit Provider Obstetrics & Gynecology
PROC: 10D00Z1 Extraction of Products of Conception, Low, Open Approach (ICD-10-PCS; CPT 59514; principal; 2022-04-06 11:00)
DX: O14.14 Severe pre-eclampsia complicating childbirth (principal); O76 Abnormality in fetal heart rate and rhythm complicating labor and delivery; O99.02 Anemia complicating childbirth; D64.89 Other specified anemias; Z3A.36 36 weeks gestation of pregnancy; Z37.0 Single live birth; O43.893 Other placental disorders, third trimester; R51.9 Headache, unspecified; O69.81X0 Labor and delivery complicated by cord around neck, without compression, not applicable or unspecified; Z20.822 Contact with and (suspected) exposure to COVID-19
CPT/HCPCS: 36415; 59025; 59050; 59200; 59510; 59514; 70450; 76815; 80048; 80053; 83735; 84450; 84550; 85025; 86850; 86900; 86901; 87635; C9803; G0379; J0610; J0690; J1885; J1940; J2274; J2405; J2590; J3010; J3475; P9041

== ENCOUNTER 2022-06-16 22:10 | Emergency (ER) | payer OTHER, MEDICAID, SELFPAY ==
[2022-06-16 22:22] VITALS: BP 133/86; PULSE 60; RESP 16; TEMP 36.4; O2SAT 100; BMI 35.9
--- NOTE | 2022-06-16 22:30 | DI.RAD.S_ITS ---
PROCEDURE: XR CHEST 1V INDICATIONS: chest pain TECHNIQUE: One view of the chest was acquired. COMPARISON: None. FINDINGS: Surgical changes and devices: None. Lungs and pleura: Lungs are clear. No pleural effusions or pneumothorax. Mediastinum: Mediastinal contours appear normal. Heart size is normal. Bones and chest wall: No suspicious bony lesions. Overlying soft tissues appear unremarkable. IMPRESSION: 1. No acute cardiopulmonary disease. Dictated by: Tyrell Toro M.D. on 06/17/2022 at 0:35 Approved by: Tyrell Toro M.D. on 06/17/2022 at 0:36
[2022-06-16 22:39] VITALS: BMI 35.9
[2022-06-16 23:06] LABS: Alanine Aminotransferase 27 IU/L (<35); Albumin Globulin Ratio 1.5 (1.0-2.8); Alkaline Phosphatase 46 U/L (38-126); Aspartate Aminotransferase 25 IU/L (14-36); BUN Creatinine Ratio 14.1 (6-22); Bilirubin Total 0.3 mg/dL (0.2-1.3); Blood Urea Nitrogen 12 mg/dL (7-17); Calcium 9.5 mg/dL (8.4-10.2); Carbon Dioxide 29 mmol/L (22-32); Chloride 103 mmol/L (98-107); Estimated Glomerular Filt Rate > 60 mL/min (>60); Globulin 2.7 g/dL (1.7-4.1); Glucose 92 mg/dL (70-100); HEMOLYSIS < 15 (0-50); Lipase 141 U/L (23-300); Sodium 140 mmol/L (137-145); Total Protein 6.7 g/dL (6.3-8.2)
[2022-06-16 23:09] LABS: Add Manual Diff / Slide Review NO; Basophils Absolute Auto 100 /uL (0-100); Basophils Percent Auto 0.8 % (0-2); Eosinophils Absolute Auto 300 /uL (0-450); Eosinophils Percent Auto 3.6 % (2-4); Hematocrit 34.8 % (36-46); Hemoglobin 11.8 g/dL (12.0-16.0); Lymphocytes Absolute Auto 3800 /uL (1100-4500); Lymphocytes Percent Auto 50.1 % (25-40); Mean Corpuscular Hemoglobin 28.6 PG (26-34); Mean Corpuscular Volume 84.3 fL (80-100); Monocytes Absolute Auto 500 /uL (0-900); Monocytes Percent Auto 6.8 % (3-14); Neutrophils Absolute Auto 2900 /uL (1500-7000); Neutrophils Percent Auto 38.7 % (50-75); Platelet Count 293 X10^3/uL (150-400); Red Blood Cell Count 4.12 X10^6/uL (4.0-5.2); Red Cell Distribution Width 14.4 % (11.6-14.8); White Blood Cell Count 7.5 X10^3/uL (4.5-11.0)
--- NOTE | 2022-06-16 23:34 | ED_ITS ---
HPI - Chest Pain General Chief Complaint: Chest Pain Stated Complaint: chest pain Time Seen by Provider: 06/16/22 23:09 Source: patient Mode of arrival: Ambulatory Limitations: no limitations History of Present Illness HPI narrative: Otherwise healthy 22-year-old female who is here for evaluation of right-sided chest discomfort. She states that hurts when she swallows or drink something or even when she swallows her saliva. It is on the right side of her chest. Fairly localized. This been no trauma. Not tender to palpation. Has not tried anything for the symptoms prior to arrival. Related Data Home Medications Medication Instructions Recorded Confirmed prenat.vits,zraa,ucv-zcwh-ojgjn 1 tab PO DAILY 09/12/21 05/21/22 Previous Rx's Medication Instructions Recorded labetalol 300 mg tablet 300 mg PO TID #60 tabs 04/09/22 nifedipine 30 mg tablet,extended 30 mg PO DAILY #30 tabs 04/09/22 release Allergies Allergy/AdvReac Type Severity Reaction Status Date / Time No Known Allergies Allergy Verified 05/21/22 14:01 Review of Systems Constitutional Constitutional: Reports system reviewed and no additional complaints, except as documented Cardiovascular Cardiovascular: Reports system reviewed and no additional complaints, except as documented Respiratory Respiratory: Reports system reviewed and no additional complaints, except as documented Gastrointestinal Gastrointestinal: Reports system reviewed and no additional complaints, except as documented Patient History Medical History Acne Chlamydia Migraine Ovarian cyst PCOS (polycystic ovarian syndrome) Surgical History Anesthesia [place] teeth extracted (~02/2019) Family History Grandmother Seizure Grandfather Lung cancer Social History marital status: unmarried,living together number of children: 0 household members: significant other lives independently: Yes housing: apartment pets and animals: Yes (1 dog) education level: college (some college) occupational status: employed 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) special esau needs: No travel history: over 6 months ago seatbelt use: always water heater temp set < 120 deg: No (will check) working smoke detector in home: Yes fire extinguisher in home: Yes carbon monox detector in home: Yes firearms in home: No do you feel safe at home: Yes Smoking Status: Former smoker second hand exposure: No alcohol intake: former substance use type: does not use during the past year weight has: increased > 10 lbs well-balanced diet: daily or most days daily servings fruits/ve-4 caffeine: No Type(s) of exercise: aerobic, regular exercise and weight lifting frequency: 3-4 times per week Smoking Status: Former smoker alcohol intake frequency: holidays/special occasions only Substance Use Type: does not use Exam Initial Vital Signs Initial Vital Signs: Vital Signs Temperature 97.6 F 06/16/22 22:22 Pulse Rate 60 06/16/22 22:22 Respiratory Rate 16 06/16/22 22:22 Blood Pressure 133/86 06/16/22 22:22 Pulse Oximetry 100 06/16/22 22:22 Oxygen Delivery Method Room Air 06/16/22 22:22 Const General: cooperative and healthy appearing HENMT Head: normal to inspection and normocephalic Chest Chest: No crepitus and No tenderness Resp Effort & Inspection: normal respiratory effort Auscultation: clear to auscultation bilaterally Cardio Rate: regular rate Skin General: no rashes or lesions noted Course Orders Ordered: ED Orders 06/16/22 22:30 XR chest 1V Stat EKG-12 Lead Stat 06/16/22 22:44 Complete Blood Count AUTO DIFF Stat Comprehensive Metabolic Panel Stat Lipase Stat Vital Signs Vital signs: Vital Signs - 8 hr 06/16/22 22:22 06/17/22 00:04 Temperature 97.6 F 97.8 F Pulse Rate 60 56 L Respiratory Rate 16 16 Blood Pressure 133/86 122/82 Pulse Oximetry 100 100 Oxygen Delivery Method Room Air Room Air MDM - Chest Pain Lab Data Attestation: I reviewed the patient's lab results. 06/16/22 22:44 06/16/22 22:44 Labs: Lab Results 06/16/22 06/16/22 Range/Units 22:44 22:44 WBC 7.5 (4.5-11.0) X10^3/uL RBC 4.12 (4.0-5.2) X10^6/uL Hgb 11.8 L (12.0-16.0) g/dL Hct 34.8 L (36-46) % MCV 84.3 (80-100) fL MCH 28.6 (26-34) PG MCHC 34.0 (30-36) % RDW 14.4 (11.6-14.8) % Plt Count 293 (150-400) X10^3/uL Neut % (Auto) 38.7 L (50-75) % Lymph % (Auto) 50.1 H (25-40) % [place] % (Auto) 6.8 (3-14) % Eos % (Auto) 3.6 (2-4) % Baso % (Auto) 0.8 (0-2) % Neut # (Auto) 2900 (5208-4547) /uL Lymph # (Auto) 3800 (5255-3468) /uL [place] # (Auto) 500 (0-900) /uL Eos # (Auto) 300 (0-450) /uL Baso # (Auto) 100 (0-100) /uL Sodium 140 (137-145) mmol/L Potassium 4.0 (3.4-5.1) mmol/L Chloride 103 (98-107) mmol/L Carbon Dioxide 29 (22-32) mmol/L BUN 12 (7-17) mg/dL Creatinine 0.85 (0.52-1.04) mg/dL Estimated GFR > 60 (>60) mL/min BUN/Creatinine Ratio 14.1 (6-22) Glucose 92 (70-100) mg/dL Calcium 9.5 (8.4-10.2) mg/dL Total Bilirubin 0.3 (0.2-1.3) mg/dL AST 25 (14-36) IU/L ALT 27 (<35) IU/L Alkaline Phosphatase 46 (38-126) U/L Total Creatine Kinase Cancelled CK-MB (CK-2) Cancelled CK-MB (CK-2) Rel Index Cancelled Troponin I Cancelled Total Protein 6.7 (6.3-8.2) g/dL Albumin 4.0 (3.5-5.0) g/dL Globulin 2.7 (1.7-4.1) g/dL Albumin/Globulin Ratio 1.5 (1.0-2.8) Lipase 141 (23-300) U/L Imaging Data Chest x-ray: Radiologist's Impression: PROCEDURE:? XR CHEST 1V ? INDICATIONS:? chest pain ? TECHNIQUE:? One view of the chest was acquired.? ? COMPARISON:? None. ? FINDINGS:? ? Surgical changes and devices:? None.? ? Lungs and pleura:? Lungs are clear.? No pleural effusions or pneumothorax.? ? Mediastinum:? Mediastinal contours appear normal.? Heart size is normal.? ? Bones and chest wall:? No suspicious bony lesions.? Overlying soft tissues appear unremarkable.? ? IMPRESSION:? ? 1.? No acute cardiopulmonary disease. ECG Data Attestation: I personally reviewed and interpreted this ECG as follows: Interpretation: Sinus bradycardia Ventricular rate of 52 Normal axis Normal QRS Normal QTC No ST T wave changes MDM Narrative Medical decision making narrative: Chest x-ray labs and EKG are unremarkable. She also has a benign exam. Her discomfort is on the right side of her chest and occurs when she swallows. Low suspicion for ACS. Low suspicion for PE, there is no indication of pneumonia. She is not having any abdominal tenderness. Pain does not radiate to her back. No skin changes over the area. Unsure the exact etiology for the patient's symptoms but it does not appear to be anything emergent. Chest x-ray does not have any indication that there is an esophageal perforation. I did discuss all this with the patient. She will try doing some reflux medications such as Maalox that she can purchase [id number] to see if this helps her symptoms. If it does not that she needs to follow with the primary doctor to discuss potential further evaluation. She was given return precautions. She expressed understanding and agreement. Discharge Plan Departure Patient Disposition: Home Clinical Impression: Right-sided chest pain Activity Restrictions/Additional Instructions: I recommend that you try the [id number] Maalox like we discussed prior to eating. If your symptoms worsen he develop new symptoms to include fever or worsening pain or change in the pain location then return to the emergency department for further evaluation. Prescriptions: No Action prenat.vits,zara,tja-temz-bagle Tablet 1 tab PO DAILY labetalol 300 mg tablet 300 mg PO TID Qty: 60 1RF nifedipine 30 mg tablet extended release 30 mg PO DAILY Qty: 30 3RF Referrals: Provider,Valentina RAZO [Primary Care Provider] - Stand Alone Forms: Patient Portal/API
[2022-06-17 00:04] VITALS: BP 122/82; PULSE 56; RESP 16; TEMP 36.6; O2SAT 100
== END 2022-06-17 00:05 | disposition home or self-care (01) ==
PROVIDERS: Emergency Provider Emergency Medicine
DX: R07.9 Chest pain, unspecified (principal); R00.1 Bradycardia, unspecified
CPT/HCPCS: 36415; 71045; 80053; 83690; 85025; 93005; 99281; 99284

== ENCOUNTER → 2023-06-17 14:10 | Outpatient (CLI) | payer OTHER, MEDICAID, SELFPAY ==
[2023-06-17 15:40] LABS: Alanine Aminotransferase 30 IU/L (<35); Aspartate Aminotransferase 25 IU/L (14-36); BUN Creatinine Ratio 14.3 (6-22); Blood Urea Nitrogen 11 mg/dL (7-17); Estimated Glomerular Filt Rate > 60 mL/min (>60); Uric Acid 3.2 mg/dL (2.5-6.2)
[2023-06-17 15:50] LABS: Add Manual Diff / Slide Review NO; Basophils Absolute Auto 0 /uL (0-100); Basophils Percent Auto 0.5 % (0-2); Eosinophils Absolute Auto 300 /uL (0-450); Eosinophils Percent Auto 2.9 % (2-4); Hematocrit 34.1 % (36-46); Hemoglobin 11.3 g/dL (12.0-16.0); Lymphocytes Absolute Auto 2400 /uL (1100-4500); Lymphocytes Percent Auto 26.8 % (25-40); Mean Corpuscular Hemoglobin 26.6 PG (26-34); Mean Corpuscular Volume 80.5 fL (80-100); Monocytes Absolute Auto 900 /uL (0-900); Monocytes Percent Auto 10.4 % (3-14); Neutrophils Absolute Auto 5200 /uL (1500-7000); Neutrophils Percent Auto 59.4 % (50-75); Platelet Count 251 X10^3/uL (150-400); Red Blood Cell Count 4.24 X10^6/uL (4.0-5.2); Red Cell Distribution Width 15.5 % (11.6-14.8); White Blood Cell Count 8.8 X10^3/uL (4.5-11.0)
[2023-06-17 17:06] LABS: Urine N gonorrhoeae NOT DETECTED
[2023-06-17 17:08] LABS: Urine Chlamydia NOT DETECTED
[2023-06-18 06:14] LABS: RPR Screen Non Reactive (Non Reactive)
[2023-06-18 10:16] LABS: Varicella IgG Antibody 2598 index (Immune >165)
[2023-06-18 22:46] LABS: Hepatitis B Surface Antigen NEGATIVE s/c (NEGATIVE)
[2023-06-18 23:01] LABS: HIV 1 & 2 Ab/Ag 4th Gen Combo NEGATIVE (NEGATIVE); Hep C Virus Ab w/Reflex Quant NEGATIVE s/c (NEGATIVE)
== END ==
PROVIDERS: Referring Provider Obstetrics & Gynecology; Visit Provider Obstetrics & Gynecology
DX: O14.90 Unspecified pre-eclampsia, unspecified trimester (principal)
CPT/HCPCS: 36415; 80055; 82565; 84450; 84460; 84520; 84550; 86787; 86803; 86850; 86900; 86901; 87086; 87389; 87491; 87591

== ENCOUNTER → 2023-07-17 08:36 | Outpatient (CLI) | payer OTHER, MEDICAID, SELFPAY ==
[2023-07-17 10:15] LABS: Natera Collection Specimen Collected
== END ==
PROVIDERS: Referring Provider Obstetrics & Gynecology; Visit Provider Obstetrics & Gynecology
DX: O99.210 Obesity complicating pregnancy, unspecified trimester (principal)
CPT/HCPCS: 36415

== ENCOUNTER → 2023-07-29 08:52 | Outpatient (CLI) | payer OTHER, MEDICAID, SELFPAY ==
--- NOTE | 2023-07-29 08:53 | DI.US.S_ITS ---
PROCEDURE: US OB <= 14 WEEKS FETUS INDICATIONS: assess placentation OUTSIDE/PRIOR DATING DATA: Last menstrual period (LMP): 04/06/2023. LMP-based estimated date of delivery (TRACEE): 01/29/2024. First dating scan (date and location): 07/29/2023. Estimated date of delivery (TRACEE) from first dating scan: 01/24/2024. TECHNIQUE: Real-time scanning was performed of the fetus and maternal pelvic organs, with image documentation. Endovaginal scanning was also performed to better visualize the fetus and maternal ovaries. COMPARISON: [facility], , US OB <= 14 WEEKS FETUS, 06/17/2023, 13:56. FINDINGS: Breech. Anterior placenta. Subjectively normal amniotic fluid. Largest pocket 3.3 cm. Cervix measures 3.9 cm. Embryo: [place]-rump length measuring 8.1 cm, 14 weeks 0 days. Biometric measurements: BPD: 2.8 cm, 15 weeks 0 days HC: 9.9 cm, 14 weeks 4 days AC: 8.2 cm, 14 weeks 4 days FL: 1.4 cm, 14 weeks 2 days Heart rate: 175 bpm. Cervical length measures 3.9 cm. Estimated gestational age 13 weeks 5 days Composite gestational age today 14 weeks 3 days IMPRESSION: 1. [place] living intrauterine at 14 weeks 3 days based on today's ultrasound. Breech position. 2. Normal placenta. Subjectively normal amniotic fluid. Recommend follow-up OB ultrasound at 20 weeks. We strive to produce accurate, complete, and clear reports of imaging services. To assist us in improving patient care, this report was composed using standard report templates and voice recognition software. Therefore, it may contain abnormal punctuation, insertions and/or omissions. Occasional wrong-word or sound-alike substitutions may occur. Though we review the report and make efforts to correct it, we do recommend that the report be read carefully in proper context to recognize any text inaccuracies. Dictated by: Pietro Davis M.D. on 07/29/2023 at 12:12 Approved by: Pietro Davis M.D. on 07/29/2023 at 12:17
== END ==
LOC: US 08:52
PROVIDERS: Referring Provider Obstetrics & Gynecology; Visit Provider Obstetrics & Gynecology
DX: O44.41 Low lying placenta NOS or without hemorrhage, first trimester (principal); O32.1XX0 Maternal care for breech presentation, not applicable or unspecified; Z98.891 History of uterine scar from previous surgery; Z3A.14 14 weeks gestation of pregnancy
CPT/HCPCS: 76811

== ENCOUNTER → 2023-09-11 08:46 | Outpatient (CLI) | payer OTHER, MEDICAID, SELFPAY ==
--- NOTE | 2023-09-11 08:47 | DI.US.S_ITS ---
PROCEDURE: US OB >= 14 WEEKS FETUS INDICATIONS: anatomy scan OUTSIDE/PRIOR DATING DATA: Last menstrual period (LMP): 04/06/2023. LMP-based estimated date of delivery (TRACEE): 01/29/2024. First dating scan (date and location): 07/29/2023. Estimated date of delivery (TRACEE) from first dating scan: 01/24/2024. The calculations are made using the working TRACEE of 01/27/2024. TECHNIQUE: Real-time scanning was performed of the fetus, with image documentation and biometric measurements. Endovaginal scanning: Not performed COMPARISON: [facility], US, OB >= 14 WEEKS FETUS, 04/02/2022, 16:59. FINDINGS: General: A single living intrauterine gestation is present. Presentation: Variable. Placenta: Placental position is anterior to the left , without previa. Amniotic fluid index: 12.1 cm, normal range is 5-24 cm. Single deepest vertical pocket is 3.9 cm. heart rate: 157 beats per minute. Maternal cervical canal: Cervix is suboptimally visualized but is grossly normal in appearance and length. biometrics: Biparietal diameter: 4.7 cm, 20 weeks 1 day Head circumference: 17.7 cm, 20 weeks 2 days Abdominal circumference: 15.6 cm, 20 weeks 5 days Femur length: 3.3 cm, 20 weeks 1 day Clinically estimated gestational age: 20 weeks 0 days Composite gestational age from present scan: 20 weeks 2 days Estimated weight and percentile: 355 g, 72 percentile Anatomic survey: Neuro: Ventricles are non-dilated at less than 10 mm. Cisterna magna is normal at 3-11 mm. Cerebellum is normal in size and morphology. Nuchal skin fold: Normal at less than 6 mm between 14-21 weeks gestational age. Face: Nose and lips, facial profile are normal. Spine: No evidence for spina bifida. Heart: Four-chamber view of the heart and cardiac outflow tracts are not well seen. Diaphragm: Diaphragm is intact. Stomach: Left-sided stomach is present. Kidneys: No hydronephrosis. Normal is less than 5 mm in 2nd trimester, less than 7 mm in 3rd trimester. Cord: 3-vessel cord has orthotopic insertion. Bladder: Normal in size. Extremities: All 4 extremities identified. IMPRESSION: 1. Living 2nd trimester intrauterine with no sonographic evidence of complications. 2. Ultrasound age correlates with clinical age. 3. Suboptimal visualization of the four-chamber view and outflow tracts of the heart. Otherwise unremarkable 2nd trimester anatomy study. Comment: Recommend patient return for limited imaging of the cardiac structures to complete a 2nd trimester anatomy study. We strive to produce accurate, complete, and clear reports of imaging services. To assist us in improving patient care, this report was composed using standard report templates and voice recognition software. Therefore, it may contain abnormal punctuation, insertions and/or omissions. Occasional wrong-word or sound-alike substitutions may occur. Though we review the report and make efforts to correct it, we do recommend that the report be read carefully in proper context to recognize any text inaccuracies. Dictated by: Dario Cardona M.D. on 09/11/2023 at 14:31 Approved by: Dario Cardona M.D. on 09/11/2023 at 14:43
== END ==
PROVIDERS: Referring Provider Obstetrics & Gynecology; Visit Provider Obstetrics & Gynecology
DX: Z34.82 Encounter for supervision of other normal pregnancy, second trimester (principal); Z3A.20 20 weeks gestation of pregnancy
CPT/HCPCS: 76811

== ENCOUNTER → 2023-09-15 09:25 | Outpatient (CLI) | payer OTHER, MEDICAID, SELFPAY ==
[2023-09-15 11:19] LABS: Hemoglobin A1C% w Est Avg Glu 4.8 % (4.0-6.0)
[2023-09-18 20:36] LABS: Gest Age on Col Date 23.1 weeks (.); Insulin Dep Diabetes No (.); OSBR Risk 1IN 10000 (.); Results Report (.); Test Results *Screen Negative* (.)
[2023-09-21 08:48] LABS: PDF SEE SCANNED REPORTS
== END ==
PROVIDERS: Referring Provider Obstetrics & Gynecology; Visit Provider Obstetrics & Gynecology
DX: O99.210 Obesity complicating pregnancy, unspecified trimester (principal)
CPT/HCPCS: 36415; 82105; 83036

== ENCOUNTER → 2023-10-30 08:20 | Outpatient (CLI) | payer OTHER, MEDICAID, SELFPAY ==
[2023-10-30 10:19] LABS: Hematocrit 31.9 % (36-46); Hemoglobin 10.8 g/dL (12.0-16.0)
[2023-10-30 10:33] LABS: GTT (PREG) 1 Hour PP 50gm Dose 140 mg/dL (76-139)
== END ==
PROVIDERS: Referring Provider Obstetrics & Gynecology; Visit Provider Obstetrics & Gynecology
DX: Z34.82 Encounter for supervision of other normal pregnancy, second trimester (principal); Z3A.26 26 weeks gestation of pregnancy
CPT/HCPCS: 36415; 82950; 85014; 85018

== ENCOUNTER → 2023-11-13 08:07 | Outpatient (CLI) | payer OTHER, MEDICAID, SELFPAY ==
[2023-11-13 10:04] LABS: Glucose Fasting Gestational 77 mg/dL (76-95)
[2023-11-13 10:31] LABS: Glucose 1 Hour Gest 144 mg/dL (76-180)
[2023-11-13 11:40] LABS: Glucose 2 Hour Gest 143 mg/dL (76-155)
[2023-11-13 12:19] LABS: Glucose Tol Interp,Gestational INTERPRETATION
[2023-11-13 12:25] LABS: Glucose 3 Hour Gest 112 mg/dL (76-140)
== END ==
PROVIDERS: Referring Provider Obstetrics & Gynecology; Visit Provider Obstetrics & Gynecology
DX: O99.210 Obesity complicating pregnancy, unspecified trimester (principal)
CPT/HCPCS: 36415; 82951; 82952

== ENCOUNTER 2023-12-02 02:09 | Inpatient (IN) | payer OTHER, SELFPAY ==
[2023-12-02] VITALS (7 sets, daily range): BP systolic 119–150; BP diastolic 75–94; PULSE 55–80; RESP 12–16; TEMP 36.1–36.4; O2SAT 96–99; BMI 34.1
--- NOTE | 2023-12-02 | PATH_ITS ---
[facility] Accession Number: [id number] No. of containers..01 Tissue . 01 Material submitted: . placenta - PLACENTA . 01 Diagnosis: Placenta, 31 weeks 5 days: 1. Third trimester, 260 gram placenta, greater than 25th percentile by weight, with features of accelerated maturation. 2. Disrupted placenta with adherent blood clot and associated early infarct, consistent with abruption in the appropriate clinical setting. 3. No decidual vascular abnormalities or villitis. 4. Three vessel cord without funisitis, arteritis, true knots or thrombi. 5. membranes with no evidence of chorioamnionitis or features of meconium exposure. [facility] 12/07/2023 1555 Local . 01 Electronically signed: . Marleny Momin MD, Pathologist NPI- [id number] . 01 Gross description: . Received in formalin with two patient identifiers and placenta, is a fragmented, irregular, monk placenta (260 grams, with the main intact disc measuring 16.2 x 12.1 x 1.3 cm) with no accessory lobes identified. . The membranes are alegre and translucent with alegre areas of thickening occupying approximately 30% of the membrane surface. They insert and rupture at the margin. . The cord is 6.0 cm in length by 1.0 cm in diameter with a presumed leftward coil and one twist per 5 cm. The cord inserts centrally. Sectioning reveals unremarkable trivascular architectures with no knots or lesions identified. . The maternal surface is blue-purple with normal arborizing vasculature and no discoloration or lesions identified. The maternal surface is diffusely ragged, and the completion of the maternal surface cannot accurately be determined. Friable, loosely attached hemorrhagic material occupied an area measuring 8.5 x 8.2 cm that is possibly indurated due to the hemorrhagic material. No discoloration of lesions are identified. The cut surface is red and spongy with an area of hemorrhage located subadjacent to the chorion across an area of approximately less than 10% of the cut surface. The indurated area adjacent to the loosely attached hemorrhagic material occupies approximately 50% of the maternal surface. . Multiple Slide Operator sections are submitted as follows: A1: Membrane roll and placental end of cord. A2: Membrane roll and end of cord. A3-A4: Full thickness indurated area with attached hemorrhage. A5-A7: Full thickness unremarkable sections. . Photographs taken. ([id number]) /MRV 12/03/2023 1443 Local . 01 Pathologist provided ICD-10: O45.90 . 01 CPT . 493569 Specimen Comment: A courtesy copy of this report has been sent to [facility] Performed at: [address] [facility] [address] [address], [place], [place] [id number] MD Tyrell Brian MD Phone: [phone]
[2023-12-02] MEDS: LABETALOL 20 MG/4 ML SYRINGE IV (02:47)
[2023-12-02 02:52] LABS: Add Manual Diff / Slide Review NO; Basophils Absolute Auto 100 /uL (0-100); Basophils Percent Auto 0.5 % (0-2); Eosinophils Absolute Auto 100 /uL (0-450); Eosinophils Percent Auto 0.7 % (2-4); Hematocrit 34.1 % (36-46); Hemoglobin 11.3 g/dL (12.0-16.0); Lymphocytes Absolute Auto 3700 /uL (1100-4500); Mean Corpuscular HGB Conc 33.2 % (30-36); Mean Corpuscular Hemoglobin 27.8 PG (26-34); Mean Corpuscular Volume 83.8 fL (80-100); Monocytes Absolute Auto 1200 /uL (0-900); Monocytes Percent Auto 10.1 % (3-14); Neutrophils Absolute Auto 6800 /uL (1500-7000); Neutrophils Percent Auto 57.7 % (50-75); Platelet Count 187 X10^3/uL (150-400); Red Blood Cell Count 4.07 X10^6/uL (4.0-5.2); Red Cell Distribution Width 14.9 % (11.6-14.8); White Blood Cell Count 11.8 X10^3/uL (4.5-11.0)
--- NOTE | 2023-12-02 03:08 | DI.US.S_ITS ---
PROCEDURE: US OB LIMITED INDICATIONS: PAIN, BLEEDING OUTSIDE/PRIOR DATING DATA: Last menstrual period (LMP): 04/06/2023. LMP-based estimated date of delivery (TRACEE): 01/29/2024. First dating scan (date and location): 07/29/2023. Estimated date of delivery (TRACEE) from first dating scan: 01/24/2024. The calculations are made using the TRACEE of 01/27/2024. TECHNIQUE: Real-time scanning was performed of the fetus, with image documentation and biometric measurements. Endovaginal scanning: Not performed COMPARISON: None. FINDINGS: General: A single living intrauterine gestation is present. Presentation: Vertex. Placenta: Placental position is left , without previa. Amniotic fluid index: 6.3 cm, normal range is 5-24 cm. Single deepest vertical pocket is 3.7 cm. heart rate: 131 beats per minute. Maternal cervical canal: 3.5 cm long. Normal lower limit is 2.5 cm. biometrics: Biparietal diameter: 7.8 centimeters, 31 weeks 3 days Head circumference: 28.1 centimeters, 30 weeks 5 days Abdominal circumference: 25.1 centimeters, 29 weeks 2 days Femur length: 25.1 centimeters, 29 weeks 2 days Clinically estimated gestational age: 6.0 centimeters, 31 weeks 0 days Composite gestational age from present scan: 32 weeks 0 days Estimated weight and percentile: 1518 grams, 4 percentile Other: BPP to of 8, without tone, movement, respiration. Largest pocket measures 3.7 centimeters. IMPRESSION: Single living intrauterine at 32 weeks 0 days. BPP 2 of 8. This finding was communicated between the overnight radiologist and Dr. Schultz at 4:51 a.m. growth restriction, with estimated weight of 1518 grams, 4th percentile. We strive to produce accurate, complete, and clear reports of imaging services. To assist us in improving patient care, this report was composed using standard report templates and voice recognition software. Therefore, it may contain abnormal punctuation, insertions and/or omissions. Occasional wrong-word or sound-alike substitutions may occur. Though we review the report and make efforts to correct it, we do recommend that the report be read carefully in proper context to recognize any text inaccuracies. Dictated by: Fadi Lemon M.D. on 12/02/2023 at 9:00 Approved by: Fadi Lemon M.D. on 12/02/2023 at 9:05
--- NOTE | 2023-12-02 03:11 | P.HPOB_ITS ---
OB HPI Date/Time Date of admission: 12/02/23 Date Patient Seen: 12/02/23 Time Patient Seen: 03:12 History of Present Condition Chief complaint: labor : 2 Para: 1 Estimated Date of Delivery: 01/29/24 Estimated Gestational Age (weeks): 31+5 Narrative: Avani Mayo is a 23 year old female Comments: presenting to triage for vaginal bleeding and abdominal pain. She denies headaches, vision changes, right upper quadrant pain, chest pain, or shortness of breath. Indications Indication for induction OB: gestational HTN/pre-eclampsia Operative indications ( section): previous uterine surgery History of Present care: good care Dating criteria: LMP confirmed by 1st trimester US Ultrasounds: normal mid trimester US Narrative: - CS at 36/6 (failed IOL for severe preE, ftp at 5cm/NRFS remote from delivery), planned/desired RCS suboptimal DI-FAS views, referral to 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) Assigned to Priya Preadmission Labs Blood type: O (+) positive -: Antibody screen: negative, Cystic fibrosis screen: unknown, GBS status: unknown, HBsAG: negative, HIV: negative, HSV 1: unknown, HSV 2: unknown and RPR/VDLR: negative -: Chlamydia screen: not detected and Gonorrhea screen: not detected -: Rubella: immune and Varicella: immune HCT: 34.1 HCAB: negative PAP: Normal Cell-free DNA: low risk XX negative AFP 1 hr GTT: 140 3 hr GTT: 3 hr Evaluation Evaluation Baseline heart rate: 140 Variability: Moderate (11-25) (with periods of minimal variability) monitor accelerations: Present Monitor Decelerations: Absent, Late and Variable Contraction Frequency (minutes): 3 Status: Category ll Dilation (cm): 1 Effacement (%): 10 station: -4 Position of cervix: mid Consistency: medium Comments: positive fibronectin [facility] Medical History (Updated 09/15/23 @ 09:19 by Sangeeta Powers MD) Obesity affecting History of pre-eclampsia in prior , currently Premature delivery before 37 weeks (~04/06/22) Chlamydia (~2019) Migraine Acne PCOS (polycystic ovarian syndrome) Ovarian cyst Surgical History (Updated 06/02/23 @ 13:06 by Lyric Reid RN) Previous section (~04/06/22) Anesthesia [place] teeth extracted (~02/2019) Family History (Updated 06/02/23 @ 13:09 by Lyric Reid RN) Grandmother Epilepsy Grandfather Lung cancer Smoker Social History marital status: unmarried,living together number of children: 1 household members: significant other and children lives independently: Yes caregiver/support person: Yes housing: condominium ([facility]) pets and animals: Yes (1 dog, 2 cats) education level: high school occupational status: 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 [employer]) current occupational exposures/hazards: 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) special esau needs: No travel history: recent (domestic only) seatbelt use: always water heater temp set < 120 deg: Yes working smoke detector in home: Yes fire extinguisher in home: Yes carbon monox detector in home: Yes firearms in home: Yes firearms unloaded and locked: Yes do you feel safe at home: Yes Smoking Status: Former smoker (quit w/ 1st ) second hand exposure: Yes (S/O vapes, but not around pt) alcohol intake: former (~1 glass wine/week when not ) substance use type: does not use during the past year weight has: other (back to pre- weight) well-balanced diet: daily or most days daily servings fruits/ve or more times/day caffeine: Yes (single AM cup coffee) Type(s) of exercise: walking frequency: 3-4 times per week Meds Home Medications and Allergies Home Medications Medication Instructions Recorded Confirmed Type [id number] 400 mcg-om3 35 mg-dha 25 tab PO 06/02/23 11/16/23 History mg-epa 5 mg-fish oil chewable tablet Allergies Allergy/AdvReac Type Severity Reaction Status Date / Time No Known Allergies Allergy Verified 11/16/23 08:22 Review of Systems Review of Systems ROS: Yes All systems reviewed with the patient and are negative except as otherwise documented OB Exam Vital signs Blood Pressure: 150/92 Pulse Rate: 68 Respiratory Rate: 16 Temperature: 97.5 F HENMT Head: normal to inspection Resp Effort & Inspection: normal respiratory effort and able to speak in complete sentences Cardio Rate: regular rate Rhythm: regular rhythm Extremities Lower extremity: Yes normal to inspection GI Other: gravid, nontender, nondistended External Female Exam: Yes normal external appearance Speculum Exam - Vagina: Yes vaginal bleeding (small clots removed from vaginal canal, no active bleeding visualized) OB/External & Speculum: vaginal bleeding (small clots removed from vaginal canal, no active bleeding visualized) Presentation: vertex Objective Imaging US - abdomen: My impression: Tech report: EFW 1518g, 4%ile BPP 2/8 (single deepest pocket 3.7cm) Labs 12/02/23 02:35 12/02/23 02:35 Labs: Laboratory Results - last 24 hr 12/02/23 02:35 WBC 11.8 H RBC 4.07 Hgb 11.3 L Hct 34.1 L MCV 83.8 MCH 27.8 MCHC 33.2 RDW 14.9 H Plt Count 187 Neut % (Auto) 57.7 Lymph % (Auto) 31.0 [place] % (Auto) 10.1 Eos % (Auto) 0.7 L Baso % (Auto) 0.5 Neut # (Auto) 6800 Lymph # (Auto) 3700 [place] # (Auto) 1200 H Eos # (Auto) 100 Baso # (Auto) 100 AST/ALT 20/03 Assessment and Plan Assessment and Plan Assessment and Plan narrative: 23yo at 31+5wks admitted for presumed pre-eclampsia with severe features (based on severe range blood pressures requiring treatment), concern for labor as well as concern for placental abruption. -started on IV magnesium for seizure prophylaxis (6gm bolus, 3gm per hour maintenance for transport) -given 20mg then 40mg of IV labetalol, with blood pressures mild range -given 12mg betamethasone IM prior to transport -plan for transfer to higher level of care ([address], accepting Dr. Arechiga) for anticipated NICU admission due to likely need for delivery Time-Based Coding :: [60min] spent with patient and on the chart (including review of chart, obtaining history, exam, reviewing outside data, placing orders, documenting exam and treatment plan, and counseling patient) on [12/02/23].
[2023-12-02] MEDS: LABETALOL 20 MG/4 ML SYRINGE 40 MG IV (03:17)
[2023-12-02 03:19] LABS: Alanine Aminotransferase 12 IU/L (<35); Albumin 2.8 g/dL (3.5-5.0); Alkaline Phosphatase 104 U/L (38-126); Aspartate Aminotransferase 29 IU/L (14-36); BUN Creatinine Ratio 12.5 (6-22); Bilirubin Total 0.4 mg/dL (0.2-1.3); Blood Urea Nitrogen 13 mg/dL (7-17); Calcium 8.9 mg/dL (8.4-10.2); Carbon Dioxide 19 mmol/L (22-32); Chloride 111 mmol/L (98-107); Estimated Glomerular Filt Rate > 60 mL/min (>60); Globulin 2.8 g/dL (1.7-4.1); Glucose 83 mg/dL (70-100); HEMOLYSIS 17 (0-50); Potassium 4.4 mmol/L (3.4-5.1); Sodium 133 mmol/L (137-145); Total Protein 5.6 g/dL (6.3-8.2); Uric Acid 8.3 mg/dL (2.5-6.2)
[2023-12-02] MEDS: MAGNESIUM SULFATE 6 GM in SODIUM CHLORIDE 0.9% 100 ML IV (03:33)
[2023-12-02 04:01] LABS: Fetal Fibronectin Positive
[2023-12-02] MEDS: BETAMETHASONE 30 MG/5 ML MDV 12 MG IM (04:20)
[2023-12-02] MEDS: MAGNESIUM SULFATE 20 GM/500 ML IV.SOLN IV ×3 (04:33→21:10)
--- NOTE | 2023-12-02 05:19 | PM.PREOP ---
Pre-operative Note Interval Note History & Physical reviewed/Exam performed by Physician: Yes Changes to H&P: Yes H&P completed within 30 days and has changed as indicated here:: 23yo at 31+5wks with pre-e with severe features and concern for placental abruption, now with BPP 2/8 and non-reassuring heart rate tracing. Discussed with patient that delivery here is indicated, with transfer of baby to NICU. Patient agrees with this plan. -risk/benefit/alternatives to repeat were discussed with patient, and surgery consent was signed -will move to OR for delivery KEISHA
[2023-12-02] MEDS: AZITHROMYCIN 500 MG in DEXTROSE 5% IN WATER 250 ML 250 MG IV (06:15)
[2023-12-02] MEDS: CEFAZOLIN 2 GM/100 ML PREMIX 100 ML IV (06:15)
[2023-12-02] MEDS: TRANEXAMIC ACID 1,000 MG in SODIUM CHLORIDE 0.9% 100 ML 200 MG IV (06:33)
[2023-12-02] MEDS: LACTATED RINGERS 1,000 ML 42 ML IV (06:36)
[2023-12-02] MEDS: BUPIVACAINE LIPOSOME 266 MG/20 ML VIAL INJ (06:44)
--- NOTE | 2023-12-02 06:47 | SUR.OPER ---
viable baby girl born at 0612 placenta delivered at 0614.
--- NOTE | 2023-12-02 07:13 | P.OP_ITS ---
Operative Date/Time/Diagnoses Date of procedure: 12/02/23 Time of procedure: 06:00 Pre-op diagnosis: 1. Pal[place] intrauterine gestation at 31+5wks 2. Pre-eclampsia with severe features 3. labor 4. Suspected placental abruption Post-op diagnosis: same Procedure & Clinicians Procedure: Repeat low transverse section Same procedure as scheduled: Yes Indications: 23yo at 31+5wks presented for vaginal bleeding and abdominal pain. During her evaluation, was noted to have severe range blood pressures requiring IV antihypertensives. Given her status, attempt was made to transfer to a facility with a NICU, however the heart rate tracing showed minimal variability with recurrent late and variable decels, in addition to a BPP of 2/8. Thus decision was made to proceed with emergent delivery via repeat c- section. Surgeon: Darby Schultz Click Yes if Unassisted: No Neonatal Nurse Practitioner: Miriam Li Reason for Neonatal Nurse Practitioner: Neonatal Nurse Practitioner was necessary for timely, efficient, and safe completion of the procedure. Anesthesia Type: General (unable to obtain spinal in a timely fashion) and Local (40cc of Exparel injected along the fascia prior to closure) Operative Notes Findings: Uterus with couvelaire appearance at the fundus. Normal appearing bilateral fallopian tubes and ovaries. Blood and clot noted with uterine incision. Delivery productive of a viable female infant in cephalic presentation with APGARS 1/7/8 and weighing 1350g. Cord segment obtained for gases, however these weren't completed. Closure Type: primary Specimen(s): placenta Intraoperative meds administered: Pitocin and Tranexamic acid Applied: Catheter Estimated Blood Loss (mL): 900 Blood products transfused: none Procedure in detail: The risks, benefits, indications and alternatives of the procedure were reviewed with the patient and informed consent was obtained. The patient was taken to the operating room where spinal anesthesia was attempted, however was unable to be obtained in a timely manner, thus the patient was put under general anesthesia. Sequential compression devices were placed bilaterally for VTE prophylaxis. She was then prepped and draped in the normal, sterile fashion in the dorsal supine position with a leftward tilt. She received 2g Ancef for surgical prophylaxis. At time of general anesthesia induction, a Pfannenstiel skin incision was then made with the scalpel and carried through to the underlying layer of fascia. The fascia was digitally. The rectus muscles were then at the midline, and the peritoneum was identified, and entered digitally. The peritoneal incision was then extended horizontally, superiorly and inferiorly, with good visualization of the bladder. The bladder blade was then inserted. The lower uterine segment was incised in a transverse fashion with the scalpel. The uterine incision was then extended manually in a cephalad/caudad direction. Blood and clot was immediately noted upon uterine entry. The bladder blade was then removed. The ?s head delivered atraumatically through the hysterotomy without difficulty, followed by the body.? The cord was milked x3, then clamped and cut with the infant handed off to the waiting pediatrics team. The placenta was then removed manually as the cord avulsed with gentle traction. The uterus was then exteriorized and cleared of all clots and debris. The uterine incision was repaired with 0-vicryl in a running, locked fashion. A second layer using 0-monocryl was then used to imbricate the hysterotomy with excellent hemostasis achieved. The uterus was returned to the abdomen and the hysterotomy was again noted to be hemostatic. The paracolic gutters were cleared of all clot and debris. The fascia was reapproximated with 0-vicryl in a running fashion. Exparel was injected into the subcutaneous layer for post-op pain management. The subcutaneous layer was closed with 3-0 vicryl in simple, interrupted sutures. The skin was closed with 4-0 monocryl in a subcuticular fashion. The incision was then dressed with steri-strips and an Aquacel dressing was applied. At the completion of the case, a Crede maneuver was performed with good uterine tone and minimal vaginal bleeding noted.? The patient tolerated the procedure well. Sponge, lap and needle counts were correct x3. The patient was taken to the recovery room in stable condition. Complications: none Baby 1: Gender: Female Presentation: vertex Placental Delivery Description: Manual Removal Cord Vessel Description: Nuchal Cord (x1) score (1 min): 1 score (5 min): 7 score (10 min): 8 weight: 2 lb 15.62 oz Post-operative Condition: stable Disposition: PACU Aftercare: routine postop
[2023-12-02] MEDS: KETOROLAC 30 MG/ML VIAL IV ×3 (08:05→19:42)
[2023-12-02] MEDS: ACETAMINOPHEN IV 1,000 MG/100 ML VIAL 400 MG IV (08:05)
[2023-12-02] MEDS: LACTATED RINGERS 1,000 ML 100 ML IV ×2 (09:00→18:11)
[2023-12-02] MEDS: ONDANSETRON 4 MG/2 ML INJ IV (10:06)
[2023-12-02] MEDS: OXYCODONE IR 5 MG TABLET PO (12:12)
[2023-12-02] MEDS: NIFEdipine 30 MG TAB ER PO (12:45)
[2023-12-02] MEDS: ACETAMINOPHEN 325 MG TABLET 650 MG PO ×2 (13:39→19:43)
--- NOTE | 2023-12-02 13:56 | PM.OBPN.1 ---
Subjective - OB Subjective Patient comments: pain well controlled [place] baby status: NICU feeding status: pumping and storing Narrative: resting in bed, endorses mild nausea that resolves with small bites/sips Date Patient Seen: 12/02/23 Time Patient Seen: 13:00 Exam Vital Signs (past 8 hours): - 12/02/23 06:53 12/02/23 07:18 12/02/23 07:23 Temperature 96.9 F L Pulse Rate 133 H 80 66 Respiratory Rate 40 H 14 16 Blood Pressure 120/80 124/90 Pulse Oximetry 97 98 Oxygen Delivery Method Room Air Room Air 12/02/23 07:28 12/02/23 07:38 12/02/23 07:55 Temperature 97 F L Pulse Rate 71 69 55 L Respiratory Rate 13 12 12 Blood Pressure 119/75 128/91 H 134/91 H Pulse Oximetry 99 98 98 Oxygen Delivery Method Room Air Room Air Room Air 12/02/23 08:07 Temperature Pulse Rate 61 Respiratory Rate 13 Blood Pressure 138/94 H Pulse Oximetry 96 Oxygen Delivery Method Room Air Oxygen Delivery Method Room Air Const General: cooperative and No acute distress Nutritional Appearance: obese Orientation: alert, awake and oriented x3 Limitations: mental status not altered HENMT Head: normal to inspection and other (mild/scant periorbital edema ) Eyes General: appearance normal, both eyes and all related structures Chest Chest: normal inspection of the chest Resp Effort & Inspection: normal respiratory effort Auscultation: clear to auscultation bilaterally Cardio Pulses: normal peripheral pulses GI Palpation: soft Other: appropriate postop tenderness, abd dressing in place c/d/i Other: +lewis Skin General: no rashes or lesions noted Neuro General: patient alert, patient awake, patient oriented x3, no focal motor deficits and deep tendon reflexes 2+ bilaterally (+1 beat clonus DTR) Extrem General: normal to inspection Other: diffuse BLE edema, non-pitting Psych Mental Status: mental status grossly normal Judgment: judgment good Objective Labs 12/02/23 14:26 12/02/23 16:05 Labs: Laboratory Results - last 24 hr 12/02/23 12/02/23 02:35 03:00 WBC 11.8 H RBC 4.07 Hgb 11.3 L Hct 34.1 L MCV 83.8 MCH 27.8 MCHC 33.2 RDW 14.9 H Plt Count 187 Neut % (Auto) 57.7 Lymph % (Auto) 31.0 [place] % (Auto) 10.1 Eos % (Auto) 0.7 L Baso % (Auto) 0.5 Neut # (Auto) 6800 Lymph # (Auto) 3700 [place] # (Auto) 1200 H Eos # (Auto) 100 Baso # (Auto) 100 Sodium 133 L Potassium 4.4 Chloride 111 H Carbon Dioxide 19 L BUN 13 Creatinine 1.04 Estimated GFR > 60 BUN/Creatinine Ratio 12.5 Glucose 83 Uric Acid 8.3 H Calcium 8.9 Total Bilirubin 0.4 AST 29 ALT 12 Alkaline Phosphatase 104 Total Protein 5.6 L Albumin 2.8 L Globulin 2.8 Albumin/Globulin Ratio 1.0 Fibronectin Positive H Assessment & Plan Plan day: 0 plan OB: routine postop care Comments: 23yo POD0 s/p emergent RCS at 31w5d secondary to placental abruption and NRFS unable to transfer prior to delivery, pre-eclampsia with severe features Pre-E with severe features s/p IV labetalol on arrival, persistent high mild range BP postoperative, stable with initiation of PO nifedipine 30mg ER continue IV magnesium gtt for seizure ppx 24h (off 0600 12/03/23), routine neuro checks per protocol keep lewis for strict I/O, robust UOP consistent with ongoing diuresis Asymptomatic hyponatremia Mild on admission (133), noted marked decrease with interval afternoon labs (125) confirmed on repeat draw urine lytes obtained, most consistent with hypo-osmolar hyponatremia secondary to ongoing extravascular fluid shifts with relative intravascular depletion pt has endorsed some mild vision blurring on awakening that resolves <2min, likely secondary to magnesium gtt, no s/sx of neuro or respiratory depression repeat AM labs ordered, pending and will follow Asymptomatic acute blood loss anemia h/h 11.3/34.1 on admission --> 9.9/30.1 6h postop hemoconcentration on admission secondary to preE with severe features, anticipate further down-trend with ongoing equilibration repeat CBC with AM labs, pending and will follow /postop routine care, optimize non-narcotic analgesia per protocol, ERAS, early ambulation pumping for breastmilk, in NICU ([place]) PNL: as per admission documentation high risk PPD, would benefit from 1-2wk telehealth mood check Dispo: pending clinical course, anticipate expedited discharge POD1-2 to minimize separation of maternal/ dyad Time-Based Coding :: [30] spent with patient and on the chart (including review of chart, obtaining history, exam, reviewing outside data, placing orders, documenting exam and treatment plan, and counseling patient) on [12/02/23].
[2023-12-02 15:00] LABS: Add Manual Diff / Slide Review NO; Basophils Absolute Auto 0 /uL (0-100); Eosinophils Absolute Auto 0 /uL (0-450); Hematocrit 30.1 % (36-46); Hemoglobin 9.9 g/dL (12.0-16.0); Lymphocytes Absolute Auto 1400 /uL (1100-4500); Lymphocytes Percent Auto 8.4 % (25-40); Mean Corpuscular HGB Conc 32.8 % (30-36); Mean Corpuscular Hemoglobin 28.1 PG (26-34); Mean Corpuscular Volume 85.8 fL (80-100); Monocytes Absolute Auto 200 /uL (0-900); Monocytes Percent Auto 1.4 % (3-14); Neutrophils Absolute Auto 15400 /uL (1500-7000); Neutrophils Percent Auto 90.2 % (50-75); Platelet Count 169 X10^3/uL (150-400); Red Blood Cell Count 3.51 X10^6/uL (4.0-5.2); Red Cell Distribution Width 15.2 % (11.6-14.8)
[2023-12-02 15:05] LABS: Alanine Aminotransferase 17 IU/L (<35); Albumin 2.5 g/dL (3.5-5.0); Albumin Globulin Ratio 1.1 (1.0-2.8); Alkaline Phosphatase 117 U/L (38-126); Aspartate Aminotransferase 32 IU/L (14-36); BUN Creatinine Ratio 11.5 (6-22); Bilirubin Total 0.3 mg/dL (0.2-1.3); Blood Urea Nitrogen 11 mg/dL (7-17); Calcium 7.7 mg/dL (8.4-10.2); Carbon Dioxide 16 mmol/L (22-32); Chloride 102 mmol/L (98-107); Estimated Glomerular Filt Rate > 60 mL/min (>60); Globulin 2.3 g/dL (1.7-4.1); Glucose 137 mg/dL (70-100); HEMOLYSIS < 15 (0-50); Potassium 5.1 mmol/L (3.4-5.1); Sodium 123 mmol/L (137-145); Total Protein 4.8 g/dL (6.3-8.2)
[2023-12-02 16:25] LABS: Sodium 125 mmol/L (137-145)
[2023-12-02 18:11] LABS: Creatinine Urine Random 64.26 mg/dL; Creatinine Urine Random 64.84 mg/dL; Sodium Urine Random 16 mmol/L (30-90)
[2023-12-02 18:46] LABS: Protein (Total) Urine Random 817 mg/dL (0-12); Protein Creatinine Ratio Urine 12.71 GRAM/24H
[2023-12-03] MEDS: ACETAMINOPHEN 325 MG TABLET 650 MG PO ×4 (02:11→22:17)
[2023-12-03] MEDS: KETOROLAC 30 MG/ML VIAL IV (02:12)
[2023-12-03 06:38] LABS: Add Manual Diff / Slide Review NO; Basophils Absolute Auto 0 /uL (0-100); Eosinophils Absolute Auto 0 /uL (0-450); Hematocrit 29.9 % (36-46); Hemoglobin 9.9 g/dL (12.0-16.0); Lymphocytes Absolute Auto 2000 /uL (1100-4500); Lymphocytes Percent Auto 9.2 % (25-40); Mean Corpuscular Volume 84.8 fL (80-100); Monocytes Absolute Auto 900 /uL (0-900); Neutrophils Absolute Auto 19100 /uL (1500-7000); Neutrophils Percent Auto 86.8 % (50-75); Platelet Count 211 X10^3/uL (150-400); Red Blood Cell Count 3.53 X10^6/uL (4.0-5.2)
[2023-12-03 07:01] LABS: Alanine Aminotransferase 17 IU/L (<35); Albumin 2.8 g/dL (3.5-5.0); Alkaline Phosphatase 119 U/L (38-126); Aspartate Aminotransferase 36 IU/L (14-36); BUN Creatinine Ratio 13.8 (6-22); Bilirubin Total 0.3 mg/dL (0.2-1.3); Blood Urea Nitrogen 16 mg/dL (7-17); Calcium 7.5 mg/dL (8.4-10.2); Carbon Dioxide 19 mmol/L (22-32); Chloride 101 mmol/L (98-107); Estimated Glomerular Filt Rate > 60 mL/min (>60); Globulin 2.9 g/dL (1.7-4.1); Glucose 115 mg/dL (70-100); HEMOLYSIS < 15 (0-50); Potassium 4.8 mmol/L (3.4-5.1); Sodium 123 mmol/L (137-145); Total Protein 5.7 g/dL (6.3-8.2)
[2023-12-03] MEDS: IBUPROFEN 600 MG TABLET PO ×3 (08:33→22:17)
[2023-12-03] MEDS: DOCUSATE 100 MG CAPSULE PO (08:33)
[2023-12-03] MEDS: PRENATAL VIT,CALC/IRON/FOLIC 1 TABLET 1 TAB PO (08:34)
--- NOTE | 2023-12-03 09:41 | PM.OBPN.1 ---
Subjective - OB Subjective Patient comments: pain well controlled [place] baby status: NICU feeding status: pumping and storing Date Patient Seen: 12/03/23 Time Patient Seen: 10:11 Interval history: 23yo [id number] POD#1 s/p RLTCS for placental abruption. Her intrapartum course was also c/b pre-e with severe features. This morning she is feeling well, pain is controlled. Has ambulated without dizziness/lightheadedness. Gibbs was d/c'd this morning, hasn't voided yet. Magnesium was d/c'd this morning. Is pumping and storing clostrum. Vaginal bleeding is light. Pt reports baby is doing well in the NICU in [place]. Exam Vital Signs (past 8 hours): Oxygen Delivery Method Room Air vitals reviewed in OBIX, blood pressures normal-mild range Const General: comfortable and No acute distress Resp Effort & Inspection: normal respiratory effort and able to speak in complete sentences GI Other: soft, appropriately tender, nondistended Other: fundus firm at U-2 Extrem General: no calf tenderness Objective Labs 12/02/23 14:26 12/02/23 16:05 Labs: Laboratory Results - last 24 hr 12/02/23 12/02/23 12/02/23 05:53 14:26 16:05 WBC 22.0 H D 17.0 H RBC 3.53 L 3.51 L Hgb 9.9 L 9.9 L Hct 29.9 L 30.1 L MCV 84.8 85.8 MCH 28.0 28.1 MCHC 33.0 32.8 RDW 15.0 H 15.2 H Plt Count 211 169 Neut % (Auto) 86.8 H D 90.2 H Lymph % (Auto) 9.2 L D 8.4 L [place] % (Auto) 4.0 1.4 L Eos % (Auto) 0.0 L 0.0 L Baso % (Auto) 0.0 0.0 Neut # (Auto) 62131 H 66564 H Lymph # (Auto) 2000 1400 [place] # (Auto) 900 200 Eos # (Auto) 0 0 Baso # (Auto) 0 0 Sodium 123 L D 123 L 125 L Potassium 4.8 5.1 Chloride 101 102 Carbon Dioxide 19 L 16 L BUN 16 11 Creatinine 1.16 H 0.96 Estimated GFR > 60 > 60 BUN/Creatinine Ratio 13.8 11.5 Glucose 115 H 137 H Calcium 7.5 L 7.7 L Total Bilirubin 0.3 0.3 AST 36 32 ALT 17 17 Alkaline Phosphatase 119 117 Total Protein 5.7 L 4.8 L Albumin 2.8 L 2.5 L Globulin 2.9 2.3 Albumin/Globulin Ratio 1.0 1.1 U Random Total Protein Ur Random Sodium Urine Creatinine Protein/Creatinin Ratio 12/02/23 12/02/23 17:20 17:20 WBC RBC Hgb Hct MCV MCH MCHC RDW Plt Count Neut % (Auto) Lymph % (Auto) [place] % (Auto) Eos % (Auto) Baso % (Auto) Neut # (Auto) Lymph # (Auto) [place] # (Auto) Eos # (Auto) Baso # (Auto) Sodium Potassium Chloride Carbon Dioxide BUN Creatinine Estimated GFR BUN/Creatinine Ratio Glucose Calcium Total Bilirubin AST ALT Alkaline Phosphatase Total Protein Albumin Globulin Albumin/Globulin Ratio U Random Total Protein 817 H Ur Random Sodium 16 L Urine Creatinine 64.26 64.84 Protein/Creatinin Ratio 12.71 Assessment & Plan Assessment and Plan (1) Placental abruption affecting delivery: Status: Acute (2) Severe pre-eclampsia: Status: Acute (3) delivery: Status: Acute (4) Delivery by section: Status: Acute Plan day: 1 plan OB: routine postop care Comments: 23yo [id number] POD#1 s/p RLTCS at 31+5wks for placental abruption in the setting of pre-e with severe features. Pt is doing well in the period. Labs from this morning are still pending. -follow-up labs from this morning -monitor BP's today, given one dose of nifedipine yesterday; will consider continuing 30mg XR nifedipine daily if her BPs trend up -if pt continues to do well, plan for d/c home tomorrow Time-Based Coding :: [20min] spent with patient and on the chart (including review of chart, obtaining history, exam, reviewing outside data, placing orders, documenting exam and treatment plan, and counseling patient) on [12/03/23].
[2023-12-03 10:28] LABS: Add Manual Diff / Slide Review NO; Basophils Absolute Auto 0 /uL (0-100); Basophils Percent Auto 0.1 % (0-2); Eosinophils Absolute Auto 0 /uL (0-450); Hematocrit 28.5 % (36-46); Hemoglobin 9.4 g/dL (12.0-16.0); Lymphocytes Absolute Auto 1700 /uL (1100-4500); Lymphocytes Percent Auto 8.5 % (25-40); Mean Corpuscular Hemoglobin 27.9 PG (26-34); Mean Corpuscular Volume 84.6 fL (80-100); Monocytes Absolute Auto 800 /uL (0-900); Monocytes Percent Auto 3.8 % (3-14); Neutrophils Absolute Auto 17800 /uL (1500-7000); Neutrophils Percent Auto 87.6 % (50-75); Platelet Count 201 X10^3/uL (150-400); Red Blood Cell Count 3.37 X10^6/uL (4.0-5.2); Red Cell Distribution Width 15.3 % (11.6-14.8); White Blood Cell Count 20.3 X10^3/uL (4.5-11.0)
[2023-12-03 10:58] LABS: Alanine Aminotransferase 28 IU/L (<35); Albumin 2.6 g/dL (3.5-5.0); Albumin Globulin Ratio 0.9 (1.0-2.8); Alkaline Phosphatase 114 U/L (38-126); Aspartate Aminotransferase 71 IU/L (14-36); BUN Creatinine Ratio 15.2 (6-22); Bilirubin Total 0.3 mg/dL (0.2-1.3); Blood Urea Nitrogen 17 mg/dL (7-17); Calcium 7.4 mg/dL (8.4-10.2); Carbon Dioxide 19 mmol/L (22-32); Chloride 103 mmol/L (98-107); Estimated Glomerular Filt Rate > 60 mL/min (>60); Globulin 2.9 g/dL (1.7-4.1); Glucose 128 mg/dL (70-100); HEMOLYSIS 19 (0-50); Potassium 4.4 mmol/L (3.4-5.1); Sodium 125 mmol/L (137-145); Total Protein 5.5 g/dL (6.3-8.2)
[2023-12-03] MEDS: OXYCODONE IR 5 MG TABLET PO ×2 (11:27→17:12)
[2023-12-04] MEDS: IBUPROFEN 600 MG TABLET PO ×2 (04:33→10:51)
[2023-12-04] MEDS: ACETAMINOPHEN 325 MG TABLET 650 MG PO ×2 (04:33→10:51)
[2023-12-04 07:22] LABS: Add Manual Diff / Slide Review NO; Basophils Absolute Auto 0 /uL (0-100); Basophils Percent Auto 0.3 % (0-2); Eosinophils Absolute Auto 0 /uL (0-450); Eosinophils Percent Auto 0.1 % (2-4); Hematocrit 24.8 % (36-46); Hemoglobin 8.2 g/dL (12.0-16.0); Lymphocytes Absolute Auto 3400 /uL (1100-4500); Lymphocytes Percent Auto 18.5 % (25-40); Mean Corpuscular HGB Conc 32.9 % (30-36); Mean Corpuscular Volume 85.1 fL (80-100); Monocytes Absolute Auto 1300 /uL (0-900); Monocytes Percent Auto 6.9 % (3-14); Neutrophils Absolute Auto 13800 /uL (1500-7000); Neutrophils Percent Auto 74.2 % (50-75); Platelet Count 165 X10^3/uL (150-400); Red Blood Cell Count 2.91 X10^6/uL (4.0-5.2); Red Cell Distribution Width 16.1 % (11.6-14.8); White Blood Cell Count 18.6 X10^3/uL (4.5-11.0)
[2023-12-04 07:39] LABS: Alanine Aminotransferase 21 IU/L (<35); Albumin 2.6 g/dL (3.5-5.0); Alkaline Phosphatase 84 U/L (38-126); Aspartate Aminotransferase 36 IU/L (14-36); BUN Creatinine Ratio 14.8 (6-22); Bilirubin Total 0.3 mg/dL (0.2-1.3); Blood Urea Nitrogen 16 mg/dL (7-17); Calcium 7.9 mg/dL (8.4-10.2); Carbon Dioxide 23 mmol/L (22-32); Chloride 109 mmol/L (98-107); Estimated Glomerular Filt Rate > 60 mL/min (>60); Globulin 2.5 g/dL (1.7-4.1); Glucose 81 mg/dL (70-100); HEMOLYSIS < 15 (0-50); Potassium 4.9 mmol/L (3.4-5.1); Sodium 132 mmol/L (137-145); Total Protein 5.1 g/dL (6.3-8.2)
--- NOTE | 2023-12-04 08:30 | PM.OBDS.1 ---
Discharge Providers Provider Date of admission: 12/02/23 02:09 Discharge Date: 12/04/23 Primary care physician: Valentina RAZO Provider Consults: 12/02/23 08:25 Consult to Junior Database Administrator Routine Comment: Discharge provider: Darby Schultz DO Summary Hospital Course Date Patient Seen: 12/04/23 Time Patient Seen: 08:36 Diagnoses: gestation at 31+5wks, delivered via repeat low transverse section Pre-eclampsia with severe features Placental abruption Acute postoperative anemia Hospital Course: 23yo [id number] admitted at 31+5wks with newly diagnosed pre-eclampsia with severe features based on severe range blood pressures requiring IV antihypertensive treatment, as well as creatinine > 1.1. She also had vaginal bleeding and abdominal pain, with a heart rate tracing showing minimal variability with late and variable decels. Attempt was made to transfer patient to a higher level of care with a NICU, however due to the non-reassuring heart rate tracing and a biophysical profile of 2/8, decision was made to deliver the patient emergently. Her delivery was uncomplicated, and productive of a viable female . Her course was notable for anemia. She was started on nifedipine 30mg ER daily for blood pressure control. She received 24hrs of IV magnesium for seizure prophylaxis. On post-op day #2, she was ambulating without dizziness/lightheadedness, tolerating regular diet, voiding spontaneously with minimal lochia. Her pain was well controlled with oral medications. Her labs were noted to be overall improving, with downtrending creatinine. Thus she was discharged to home on post-op day #2, with close follow-up for blood pressure monitoring. Peripartum Data Infant Delivery Method: Emergency Section Procedures: External monitoring General anesthesia Repeat section complications: none [place] 1: Gender: Female Disposition of : NICU Discharge Diagnosis (1) Placental abruption affecting delivery: Status: Acute (2) Severe pre-eclampsia: Status: Acute (3) delivery: Status: Acute (4) Delivery by section: Status: Acute Status at Discharge Cognitive/behavioral status at discharge: oriented Functional status at discharge: independent ambulation Overall status at discharge: patient is progressing back to baseline Time Spent with Patient Time attestation: Total time spent providing and/or coordinating discharge services: Time spent: Greater than 30 minutes Objective Labs 12/04/23 07:12 12/04/23 07:12 Labs: Laboratory Results - last 24 hr 12/03/23 12/04/23 10:01 07:12 WBC 20.3 H 18.6 H RBC 3.37 L 2.91 L Hgb 9.4 L 8.2 L Hct 28.5 L 24.8 L MCV 84.6 85.1 MCH 27.9 28.0 MCHC 33.0 32.9 RDW 15.3 H 16.1 H Plt Count 201 165 Neut % (Auto) 87.6 H 74.2 Lymph % (Auto) 8.5 L 18.5 L [place] % (Auto) 3.8 6.9 Eos % (Auto) 0.0 L 0.1 L Baso % (Auto) 0.1 0.3 Neut # (Auto) 60840 H 24128 H Lymph # (Auto) 1700 3400 [place] # (Auto) 800 1300 H Eos # (Auto) 0 0 Baso # (Auto) 0 0 Sodium 125 L 132 L Potassium 4.4 4.9 Chloride 103 109 H Carbon Dioxide 19 L 23 BUN 17 16 Creatinine 1.12 H 1.08 H Estimated GFR > 60 > 60 BUN/Creatinine Ratio 15.2 14.8 Glucose 128 H 81 Calcium 7.4 L 7.9 L Total Bilirubin 0.3 0.3 AST 71 H 36 ALT 28 21 Alkaline Phosphatase 114 84 Total Protein 5.5 L 5.1 L Albumin 2.6 L 2.6 L Globulin 2.9 2.5 Albumin/Globulin Ratio 0.9 L 1.0 Exam Vital Signs (past 8 hours): Oxygen Delivery Method Room Air vitals reviewed in OBIX over the last 24 hours: blood pressure ranging 116-148/76-94, pulse 65-99, Tm 99.6 Const General: cooperative, healthy appearing, comfortable and No acute distress Resp Effort & Inspection: normal respiratory effort and able to speak in complete sentences GI Inspection: normal to inspection Other: soft, nontender, nondistended Other: fundus firm and nontender at U-2 Skin General: no rashes or lesions noted Other: incision covered with Aquacel dressing with minimal strikethrough Neuro General: patient alert and patient awake Extrem General: normal to inspection, no pedal edema and no calf tenderness Psych Mood: congruent mood Affect: normal affect Discharge Plan Discharge Plan Patient Disposition: Home Provider Discharge Comment: Take ibuprofen 600 mg every 6 hours and acetaminophen 650 mg every 6 hours for pain. Use oxycodone 5 mg every 6 hours as needed for breakthrough pain. Take nifedipine 30 mg daily for blood pressure. Monitor your blood pressure once per day, and notify us if values are consistently over 150/100. Avoid lifting greater than 20 lb for at least 6 weeks[address] anything in the vagina for 6 weeks. Take an oral iron supplement every other day for the next 2 months. Discharge orders & Medications Prescriptions: New nifedipine 30 mg Tablet Extended Release 24hr 30 mg PO DAILY Qty: 30 0RF oxycodone 5 mg Tablet 5 mg PO Q4-6H PRN (Reason: Pain, Moderate (4-6)) Qty: 10 0RF Continued [id number] oil 400 mcg-35 mg -25 mg-5 mg tablet,chewable PO Follow up/Referrals: Darby Schultz DO [Physician] - Diet/Activity/Treatments Diet: Diet as Tolerated Activity: As tolerated. Skin/Wound/Dressing Care Report to your healthcare provider any signs of infection, such as:: chills, fever, increased pain, unusual drainage and unusual redness Dressing: You may shower normally. We will remove the Aquacel dressing in the office next week. Visit Report/Discharge Packet Instructions: DI for , DI for Pre-eclampsia, DI for Prescription Opioid Use Stand Alone Forms: Patient Portal/API, Stroke Signs & Symptoms Discharge Data Primary Care Provider: ProviderValentina
[2023-12-04] MEDS: DOCUSATE 100 MG CAPSULE PO (08:39)
[2023-12-04] MEDS: PRENATAL VIT,CALC/IRON/FOLIC 1 TABLET 1 TAB PO (08:40)
[2023-12-04] MEDS: OXYCODONE IR 5 MG TABLET PO (08:40)
== END 2023-12-04 12:30 | disposition home or self-care (01) | DRG 788 ==
PROVIDERS: Obstetrics & Gynecology; Admitting Provider Student in an Organized Health Care Education/Training Program; Referring Provider Student in an Organized Health Care Education/Training Program; Visit Provider Student in an Organized Health Care Education/Training Program
PROC: 10D00Z1 Extraction of Products of Conception, Low, Open Approach (ICD-10-PCS; CPT 59514; principal; 2023-12-02 06:30)
DX: O14.14 Severe pre-eclampsia complicating childbirth (principal); Z3A.31 31 weeks gestation of pregnancy; Z37.0 Single live birth; O45.93 Premature separation of placenta, unspecified, third trimester
CPT/HCPCS: 36415; 59050; 76815; 76819; 80053; 82570; 82731; 84295; 84300; 84550; 85025; C9290; G0379; J0136; J0690; J0702; J1100; J1170; J1885; J2405; J2590; J3010; J3475

== ENCOUNTER → 2023-12-11 10:59 | Outpatient (CLI) | payer OTHER, SELFPAY ==
--- NOTE | 2023-12-11 11:01 | DI.US.S_ITS ---
PROCEDURE: US PERIPH VENOUS LOW EXTREM LT INDICATIONS: LEFT CALF PAIN 9 DAYS POST TECHNIQUE: Real-time imaging, as well as color and pulse Doppler interrogation, were performed of the lower extremity deep veins from the inguinal ligament to the popliteal fossa, with documentation of the visualized calf veins. Twelve images COMPARISON: None. FINDINGS: The common femoral, femoral, popliteal, and the visualized calf veins are normally compressible, and free of intraluminal thrombus. Color and pulse Doppler demonstrate normal phasic intraluminal flow. There is normal augmentation response to distal compression maneuver. IMPRESSION: No ultrasound evidence of left lower extremity deep vein thrombosis. Dictated by: Ciro Styles M.D. on 12/11/2023 at 12:56 Approved by: Ciro Styles M.D. on 12/11/2023 at 12:58
== END ==
PROVIDERS: Referring Provider Obstetrics & Gynecology; Visit Provider Obstetrics & Gynecology
DX: M79.662 Pain in left lower leg (principal)
CPT/HCPCS: 93971